=== PATIENT | female | born 1950 | race Caucasian/White ===

== ENCOUNTER 2016-08-30 13:21 | Outpatient (CLI) | payer MEDICARE | END 2016-08-30 13:22 | disposition home or self-care (01) | DX: E78.2 Mixed hyperlipidemia (principal); F32.9 Major depressive disorder, single episode, unspecified; E03.9 Hypothyroidism, unspecified; Z79.899 Other long term (current) drug therapy ==

== ENCOUNTER 2016-10-04 09:17 | Outpatient (CLI) | payer MEDICARE | END 2016-10-04 09:18 | disposition home or self-care (01) | DX: Z13.820 Encounter for screening for osteoporosis (principal); M85.89 Other specified disorders of bone density and structure, multiple sites; Z78.0 Asymptomatic menopausal state ==

== ENCOUNTER 2016-10-04 09:55 | Outpatient (CLI) | payer MEDICARE | END 2016-10-04 09:56 | disposition home or self-care (01) | DX: Z12.31 Encounter for screening mammogram for malignant neoplasm of breast (principal); Z98.82 Breast implant status ==

== ENCOUNTER 2016-11-18 10:51 | Outpatient (CLI) | payer MEDICARE | END 2016-11-18 10:52 | disposition home or self-care (01) | DX: E03.9 Hypothyroidism, unspecified (principal); Z79.899 Other long term (current) drug therapy ==

== ENCOUNTER 2016-11-26 10:41 | Outpatient (CLI) | payer MEDICARE | END 2016-11-26 10:42 | disposition home or self-care (01) | DX: S82.65XA Nondisplaced fracture of lateral malleolus of left fibula, initial encounter for closed fracture (principal) ==

== ENCOUNTER 2017-01-13 19:31 | Emergency (ER) | payer MEDICARE ==
[2017-01-13] MEDS ORDERED: BUFFERED LIDOCAINE 10 ML SYRINGE ONE (20:24)
== END 2017-01-13 21:03 | disposition home or self-care (01) ==
DX: L02.01 Cutaneous abscess of face (principal); L03.211 Cellulitis of face; I10 Essential (primary) hypertension

== ENCOUNTER 2017-01-15 07:46 | Outpatient (CLI) | payer MEDICARE | END 2017-01-15 07:47 | disposition critical access hospital (66) | LOC: EMS 07:46 | PROVIDERS: ATTEND Surgery | DX: R07.9 Chest pain, unspecified (principal) | CPT/HCPCS: A0425; A0429 ==

== ENCOUNTER 2017-01-15 08:02 | Emergency (ER) | payer MEDICARE ==
--- NOTE | 2017-01-15 08:05 | ED Physician Documentation ---
PD HPI CHEST PAIN - Stated complaint Stated Complaint: CP - History obtained from History obtained from: Patient - History of Present Illness Timing - onset: How many weeks ago (1) Timing - onset during: Light activity Timing - duration: Weeks (1) Timing - details: Gradual onset, Still present Quality: Aching, Sharp, Pain Location: Right chest (anterolaterally under right breast, hurts with breathing and moving.) Radiation: No: Neck, Back, Abdominal Improved by: Rest Worsened by: Inspiration, Movement, Palpation Associated symptoms: No: Shortness of air, Nausea, Vomiting, Feeling faint / dizzy, Palpitations, Cough Similar symptoms before: No diagnosis Recently seen: Emergency Dept (seen in ED with facial right cheek abscess that had I&D with packing and Rx Bactrim. The facial sore started similar timing to the chest pain. No rash at chest.) Review of Systems Constitutional: reports: Myalgias. denies: Fever, Chills Nose: denies: Rhinorrhea / runny nose, Congestion Throat: denies: Dental pain / toothache, Oral lesions / sores, Sore throat Cardiac: denies: Palpitations, Pedal edema, Calf pain Respiratory: denies: Dyspnea, Cough, Wheezing GI: denies: Nausea, Vomiting, Diarrhea Skin: reports: Lesions (right facial abscess with I&D 2 days ago, with little to no drainage now and less swelling.) Musculoskeletal: denies: Neck pain, Back pain, Extremity swelling Neurologic: denies: Focal weakness, Numbness, Near syncope PD PAST MEDICAL HISTORY - Past Medical History Cardiovascular: Hypertension Respiratory: None Neuro: None Endocrine/Autoimmune: None GI: None PSYCHIATRIC LPN: None : None HEENT: None Psych: None Musculoskeletal: Osteoarthritis, Other (recent ankle injury and was in walking boot for 6 weeks, just out of it a week ago. ) Derm: None - Past Surgical History Past Surgical History: Yes Ortho: Amputation - Present Medications Home Medications: Ambulatory Orders Medication Instructions Recorded Confirmed Hydrocodone/Acetaminophen [Vicodin 1 tab Q6H PRN 01/15/17 01/15/17 5-300 mg Tablet] Naproxen 375 mg PO BID #20 tablet 01/15/17 Oxycodone HCl/Acetaminophen 1 each PO Q6H PRN #20 tablet 01/15/17 [Percocet 5-325 mg Tablet] Sulfamethox/Trimeth 800/160 1 tab BID 01/15/17 01/15/17 [Bactrim Ds] Zolpidem Tartrate [Ambien] 10 mg PO QPM 01/15/17 01/15/17 - Allergies Allergies/Adverse Reactions: Allergies Allergy/AdvReac Type Severity Reaction Status Date / Time No Known Drug Allergies Allergy Verified 01/15/17 08:16 - Social History Does the pt smoke?: No Smoking Status: Never smoker Does the pt drink ETOH?: Yes Does the pt have substance abuse?: No - Immunizations Immunizations are current?: Yes - POLST Patient has POLST: No PD ED PE NORMAL - Vitals Vital signs reviewed: Yes - General General: Alert and oriented X 3, No acute distress, Well developed/nourished - HEENT HEENT: Atraumatic, Ears normal, Moist mucous membranes, Pharynx benign - Neck Neck: Supple, no meningeal sign, No adenopathy - Cardiac Cardiac: RRR, No murmur - Respiratory Respiratory: Clear bilaterally, Other (some chestwall tenderness under right breast anterolaterally. No crepitance. No rash nor sores. ) Results - Vitals Vitals: Vital Signs - 24 hr 01/15/17 01/15/17 01/15/17 08:09 10:22 12:36 Temperature 36.3 C L 36.5 C Heart Rate 78 68 80 Respiratory 20 12 18 Rate Blood Pressure 166/84 H 139/83 H 157/66 H O2 Saturation 100 97 100 Oxygen O2 Source Room air - Labs Labs: Laboratory Tests 01/15/17 01/15/17 01/15/17 08:29 09:43 09:43 WBC 7.4 RBC 4.00 L Hgb 12.5 Hct 36.5 L MCV 91.2 MCH 31.3 H MCHC 34.4 RDW 13.8 Plt Count 223 MPV 8.8 Neut # 5.2 Lymph # 1.3 L Walton # 0.6 Eos # 0.1 Baso # 0.0 Absolute Nucleated RBC 0.00 Nucleated RBCs 0.1 D-Dimer 262.2 H Sodium Potassium Chloride Carbon Dioxide Anion Gap BUN Creatinine Estimated GFR (MDRD) Glucose Calcium Total Bilirubin AST ALT Alkaline Phosphatase Troponin I B-Natriuretic Peptide 16 Total Protein Albumin Globulin Albumin/Globulin Ratio Lipase 01/15/17 01/15/17 09:43 09:43 WBC RBC Hgb Hct MCV MCH MCHC RDW Plt Count MPV Neut # Lymph # Walton # Eos # Baso # Absolute Nucleated RBC Nucleated RBCs D-Dimer Sodium 139 Potassium 5.4 H Chloride 104 Carbon Dioxide 25 Anion Gap 10.0 BUN 22 H Creatinine 1.1 H Estimated GFR (MDRD) 49 L Glucose 112 H Calcium 10.0 Total Bilirubin 0.6 AST 30 ALT 27 Alkaline Phosphatase 95 Troponin I < 0.04 B-Natriuretic Peptide Total Protein 8.1 Albumin 4.4 Globulin 3.7 Albumin/Globulin Ratio 1.2 Lipase 21 L - Rads (name of study) chest xray Radiology: Prelim report reviewed (subtle ground glass opacities right middle lobe could be early infectious process. ) PD MEDICAL DECISION MAKING - ED course Complexity details: reviewed results (CXR is okay. Labs do not suggest worse process. D-dimer is negative. WBC is okay. BNP and Troponin are nagative. CXR might suggest early RML infectious or inflammatory process so NSAIDs and continue the Bactrim (timing of the symptoms concurrent with facial abscess could lead to concern for staph pneumonia - to recheck if worsening).), re- evaluated patient (discussed with her and spouse to watch for evolving symptoms of cough, fever, skin rash, other symptoms to suggest blossoming process not evident as yet. ), considered differential (the cheek abscess is doing well and packing removed without problems. No drainage. The right chest pain presume is pleuritic or muscular. No indication for more significant process. ), d/w patient Departure - Departure Disposition: 01 Home, Self Care Clinical Impression: Right-sided chest pain, Abscess re-check Condition: Stable Instructions: ED Chest Pain Atypical Unkn Cause Follow-Up: Mike Chong MD [Primary Care Provider] - Prescriptions: Naproxen 375 mg PO BID #20 tablet Oxycodone HCl/Acetaminophen [Percocet 5-325 mg Tablet] 1 each PO Q6H PRN #20 tablet PRN Reason: Pain Comments: Drink adequate fluids. Take usual medications. Continue the Bactrim antibiotic. Add low dose naproxen 375 mg twice daily with food, and add Tylenol or Percocet as needed for pains. Presume the chest pain is musculoskeletal. Recheck with PMD in a couple of days, call for appt. Discharge Date/Time: 01/15/17 12:45
[2017-01-15] MEDS ORDERED: KETOROLAC 60 MG/2 ML VIAL IVP STA (08:28)
[2017-01-15] MEDS ORDERED: HYDROmorphone 1 MG/ML SYRINGE IVP STA ×2 (08:28→12:31)
[2017-01-15] MEDS ORDERED: ONDANSETRON 4 MG/2 ML VIAL IVP STA (08:29)
[2017-01-15] MEDS ORDERED: KETOROLAC 30 MG/ML VIAL ONE (08:56)
[2017-01-15] MEDS ORDERED: HYDROmorphone 1 MG/ML SYRINGE ONE ×2 (08:56→12:30)
[2017-01-15] MEDS ORDERED: ONDANSETRON 4 MG/2 ML VIAL ONE (08:57)
--- NOTE | 2017-01-15 09:13 | XRAY Preliminary Report ---
Exam: XR Chest 2 View PA/LAT IMPRESSION: Subtle groundglass opacities with rounded densities in bilateral lobe are nonspecific but can be seen in the setting of inflammatory or early infectious process. [facility] SITE ID: [id number]
--- NOTE | 2017-01-15 09:16 | XRAY Report ---
EXAM: CHEST RADIOGRAPHY EXAM DATE: 01/15/2017 08:44 AM. CLINICAL HISTORY: Right chest pain for 4 days. COMPARISON: None. TECHNIQUE: 2 views. FINDINGS: Lungs/Pleura: Subtle groundglass opacities with nodular densities in the right middle lobe with no fo roque consolidation or pleural effusion. Mediastinum: Heart and mediastinal contours are unremarkable. Other: None. IMPRESSION: Subtle groundglass opacities with rounded densities in bilateral lobe are nonspecific but can be seen in the setting of inflammatory or early infectious process. [facility] Referring Provider Line: [phone] SITE ID: [id number]
[2017-01-15 09:54] LABS: BASOPHILS % (AUTO) 0.6 %; EOSINOPHILS # (AUTO) 0.1 10^3/uL (0.0-0.7); HCT - HEMATOCRIT 36.5 % (37.0-47.0); HGB - HEMOGLOBIN 12.5 g/dL (12.0-16.0); LYMPHOCYTES # (AUTO) 1.3 10^3/uL (1.5-3.5); LYMPHOCYTES % (AUTO) 18.2 %; MEAN CORPUSCULAR HEMOGLOBIN 31.3 pg (27.0-31.0); MEAN CORPUSCULAR HGB CONC 34.4 g/dL (32.0-36.0); MEAN CORPUSCULAR VOLUME 91.2 fL (81.0-99.0); MEAN PLATELET VOLUME 8.8 fL (7.9-10.8); MONOCYTES # (AUTO) 0.6 10^3/uL (0.0-1.0); MONOCYTES % (AUTO) 8.1 %; NEUTROPHILS # (AUTO) 5.2 10^3/uL (1.5-6.6); NEUTROPHILS % (AUTO) 71.1 %; NUCLEATED RED BLOOD CELLS AUTO 0.1 /100WBC; RED CELL DISTRIBUTION WIDTH 13.8 % (12.0-15.0); UNCORRECTED WHITE BLOOD COUNT 7.4 x10^3/uL; WHITE BLOOD COUNT 7.4 x10^3/uL (4.8-10.8)
[2017-01-15 10:09] LABS: ALBUMIN/GLOBULIN RATIO 1.2 (1.0-2.2); BILIRUBIN,TOTAL 0.6 mg/dL (0.2-1.0); CREATININE 1.1 mg/dL (0.4-1.0); POTASSIUM 5.4 mmol/L (3.5-5.0); TOTAL PROTEIN 8.1 g/dL (6.7-8.2)
[2017-01-15 12:36] VITALS: BP 157/66
== END 2017-01-15 12:45 | disposition home or self-care (01) ==
LOC: EDUNIT# → ED 08:02
DX: R07.9 Chest pain, unspecified (principal); L02.01 Cutaneous abscess of face; I10 Essential (primary) hypertension; M19.90 Unspecified osteoarthritis, unspecified site
CPT/HCPCS: 36415; 71020; 80053; 83690; 83880; 84484; 85025; 85379; 96374; 96375; 96376; 99283; 99284; J1170

== ENCOUNTER 2017-01-19 14:52 | Emergency (ER) | payer MEDICARE ==
[2017-01-19] MEDS ORDERED: KETOROLAC 60 MG/2 ML VIAL IM STA (16:14)
[2017-01-19] MEDS ORDERED: DEXAMETHASONE 10 MG/ML VIAL PO STA (16:14)
[2017-01-19] MEDS ORDERED: DEXAMETHASONE 10 MG/ML VIAL ONE (16:19)
[2017-01-19] MEDS ORDERED: KETOROLAC 60 MG/2 ML VIAL ONE (16:20)
--- NOTE | 2017-01-19 16:47 | XRAY Preliminary Report ---
Exam: XR Chest 2 View PA/LAT IMPRESSION: 1. Reticular nodular opacities in the right lower lobe. Correlate clinically for infectious or inflam matory processes. 2. No effusions or pneumothorax. [facility] SITE ID: [id number]
--- NOTE | 2017-01-19 16:59 | XRAY Report ---
EXAM: CHEST RADIOGRAPHY EXAM DATE: 01/19/2017 04:38 PM. CLINICAL HISTORY: Right-sided chest pain . COMPARISON: 01/15/2017. TECHNIQUE: 2 views. FINDINGS: Lungs/Pleura: Persistent reticulonodular opacities in the right lower lobe. No effusions or pneumotho rax noted. Mediastinum: Heart and mediastinal contours are unremarkable. Other: None. IMPRESSION: 1. Reticulonodular opacities in the right lower lobe. Correlate clinically for infectious or inflamma tory process. 2. No effusions or pneumothorax. [facility] Referring Provider Line: [phone] SITE ID: [id number]
[2017-01-19] MEDS ORDERED: cefTRIAXone 1 GM VIAL IM STA (17:05)
--- NOTE | 2017-01-19 17:06 | ED Physician Documentation ---
History of Present Illness - Stated complaint Stated Complaint: PX RIGHT SIDE - Chief complaint Chief Complaint: General - History obtained from History obtained from: Patient - History of Present Illness Timing: How many weeks ago (1) - Additonal information Additional information: 66 y/o female with a carbuncle on her face that is improving has pain in the right chest that started at the same time as the infection on the face has improvement in the face and worsening of the pain in the right chest. The pain in the right chest is so bad that she has not been able to sleep for the past 4 days. She has pain with any movement of the right arm and with palpation of the chest wall. She is certain that this is a result of exercises she was doing to prevent a shoulder surgery. She does not feel like she has a cough or breathing difficulty. She usually takes some tramadol for back pain and she is used to taking this and this did not work. asprin did not work and she tried both vicoden and oxycodone and these did not work. Review of Systems Constitutional: reports: Fatigue. denies: Fever, Chills, Myalgias Eyes: denies: Decreased vision Ears: denies: Ear pain Nose: denies: Rhinorrhea / runny nose, Congestion Throat: denies: Sore throat Cardiac: reports: Chest pain / pressure. denies: Palpitations, Pedal edema, Calf pain Respiratory: denies: Dyspnea, Cough, Wheezing GI: denies: Abdominal Pain, Nausea, Vomiting : denies: Dysuria, Frequency Skin: reports: Lesions (improved on the face.). denies: Rash Musculoskeletal: reports: Back pain. denies: Neck pain, Extremity pain, Joint pain Neurologic: denies: Generalized weakness, Focal weakness, Numbness PD PAST MEDICAL HISTORY - Past Medical History Cardiovascular: Hypertension Respiratory: None Neuro: None Endocrine/Autoimmune: None GI: None MICROBIOLOGY ANALYST: None : None HEENT: None Psych: None Musculoskeletal: Osteoarthritis, Other Derm: None - Past Surgical History Past Surgical History: Yes Ortho: Amputation - Present Medications Home Medications: Ambulatory Orders Medication Instructions Recorded Confirmed Oxycodone HCl/Acetaminophen 1 each PO Q6H PRN #20 tablet 01/15/17 01/19/17 [Percocet 5-325 mg Tablet] Zolpidem Tartrate [Ambien] 10 mg PO QPM 01/15/17 01/19/17 Azithromycin [Zithromax] 250 mg PO DAILY #6 tablet 01/19/17 Dexamethasone [Decadron] 4 mg PO DAILY #5 tablet 01/19/17 - Allergies Allergies/Adverse Reactions: Allergies Allergy/AdvReac Type Severity Reaction Status Date / Time No Known Drug Allergies Allergy Verified 01/19/17 14:58 - Social History Does the pt smoke?: No Smoking Status: Never smoker Does the pt drink ETOH?: Yes Does the pt have substance abuse?: No - Immunizations Immunizations are current?: Yes - POLST Patient has POLST: No PD ED PE NORMAL - Vitals Vital signs reviewed: Yes - General General: Alert and oriented X 3, Well developed/nourished, Other (appears to be in pain with any movement of the right arm or the chest. She is clutching the chest below the right breast ) - HEENT HEENT: Atraumatic, PERRL, EOMI - Neck Neck: Supple, no meningeal sign - Cardiac Cardiac: RRR, No murmur - Respiratory Respiratory: No respiratory distress, Clear bilaterally, Other (There specific chest wall tenderness to the right chest wall under the right breast and laterally ) - Abdomen Abdomen: Soft, Non tender - Back Back: No CVA TTP, No spinal TTP - Derm Derm: Normal color, Warm and dry, No rash - Extremities Extremities: No deformity, No edema - Neuro Neuro: Alert and oriented X 3, No motor deficit, No sensory deficit, Normal speech - Psych Psych: Normal mood, Normal affect Results - Vitals Vitals: Vital Signs - 24 hr 01/19/17 01/19/17 01/19/17 14:54 16:43 17:41 Temperature 36.2 C L 37.1 C 36.8 C Heart Rate 105 H 76 78 Respiratory 28 H 18 16 Rate Blood Pressure 161/85 H 131/70 H 118/80 O2 Saturation 96 100 100 Oxygen O2 Source Room air - Rads (name of study) 2 view chest Radiology: Prelim report reviewed (Impression: 1. Reticular nodular opacities in the right lower lobe. Correlate clinically for infectious or inflammatory process. 2. No effusions or pneumothorax.), EMP read indepedently, See rad report PD MEDICAL DECISION MAKING - ED course Complexity details: reviewed results, re-evaluated patient, considered differential, d/w patient ED course: 66 y/o female with a resolving facial abscess has right sided chest wall pain and an underlying inflammatory process that appears more of an atypical infiltrate. Her pain appears to be chest wall pain and it responds to decadron and toradal and the patient is able to sleep in the ED. She is certain this pain is related to her chest wall and her shoulder exercises. She has not been successful in treating the pain with pain medications. I am concerned that the atypical infiltrate is real and we have provided her with a script for zithromax and for decadron. She is advised to use the tramadol she has for pain control. Departure - Departure Disposition: Home, Self Care Clinical Impression: Chest wall pain, Atypical pneumonia Condition: Stable Instructions: ED Strain Chest Wall, ED Pneumonia Adult Follow-Up: Mike Chong MD [Provider Admit Priv/Credential] - Prescriptions: Dexamethasone [Decadron] 4 mg PO DAILY #5 tablet Azithromycin [Zithromax] 250 mg PO DAILY #6 tablet
[2017-01-19] MEDS ORDERED: cefTRIAXone 1 GM VIAL ONE (17:53)
[2017-01-19] MEDS ORDERED: LIDOCAINE 1% 2 ML VIAL ONE (17:53)
[2017-01-19 19:29] VITALS: BP 150/85
== END 2017-01-19 19:25 | disposition home or self-care (01) ==
LOC: ED 14:52
DX: J18.9 Pneumonia, unspecified organism (principal); R07.89 Other chest pain; L02.03 Carbuncle of face; I10 Essential (primary) hypertension
CPT/HCPCS: 71020; 96372; 99283; 99284

== ENCOUNTER 2017-01-24 10:20 | Outpatient (CLI) | payer MEDICARE ==
--- NOTE | 2017-01-24 13:25 | XRAY Report ---
RIGHT RIBS WITH FRONTAL CHEST: 01/24/2017 CLINICAL INDICATION: Pleurodynia. COMPARISON: 01/19/2017. FINDINGS: Frontal view of the chest and oblique views of the right ribs were obtained. A marker was placed at the site of maximal tenderness. The cardiac silhouette is within normal limits. The lungs are now clear. No effusion or pneumothorax is evident. No displaced rib fracture is appreciated. IMPRESSION: NO EVIDENCE OF A DISPLACED RIB FRACTURE. RESOLUTION OF PREVIOUSLY NOTED RIGHT BASILAR AI R SPACE DISEASE. JOB #: [id number] EXT JOB #:[id number]
== END 2017-01-24 10:21 | disposition home or self-care (01) ==
LOC: DI 10:20
PROVIDERS: ATTEND Internal Medicine
DX: R07.81 Pleurodynia (principal)

== ENCOUNTER 2017-04-30 10:16 | Day surgery (SDC) | payer MEDICARE ==
[2017-04-30] MEDS ORDERED: LACTATED RINGERS 1,000 ML IV ONE (10:30)
[2017-04-30] MEDS ORDERED: fentaNYL 100 MCG/2 ML VIAL IVP ONE (12:20)
[2017-04-30] MEDS ORDERED: MIDAZOLAM 2 MG/2 ML VIAL IVP ONE (12:20)
--- NOTE | 2017-04-30 13:16 | PROCEDURE REPORT ---
DATE OF PROCEDURE: 04/30/2017 00:00:00 PROCEDURE: Colonoscopy. ENDOSCOPIST: Sharla Orellana MD PRIMARY CARE: Mike Chong MD INDICATION: History of colon polyps. PREMEDICATIONS: Fentanyl 200 mcg, Versed 13 mg IV titration. DESCRIPTION OF PROCEDURE: After informed consent was obtained, the patient was placed in the left lat eral decubitus position. The video colonoscope was introduced in the rectum and slowly advanced to th e cecum. On slow withdrawal, mucosa was carefully examined. The scope was removed. The patient tolera daisy the procedure well. BLOOD LOSS: None. COMPLICATIONS: None. FINDINGS 1. A 1.2 cm semi-sessile polyp at the rim of the cecum, hot snared and removed completely. 2. A 5 mm hepatic flexure polyp, jumbo biopsied and removed completely. 3. A 4 mm transverse colon polyp, jumbo biopsied and removed completely. 4. Sigmoid diverticulosis. The patient will be called with biopsy results but will need followup colonoscopy, most likely in 3 y ears. JOB #: [id number] EXT JOB #:[id number]
[2017-04-30 13:25] VITALS: BP 118/68
== END 2017-04-30 10:17 | disposition home or self-care (01) ==
LOC: SDS 10:16
PROVIDERS: ATTEND Internal Medicine Gastroenterology
PROC: 0DBL8ZX Excision of Transverse Colon, Via Natural or Artificial Opening Endoscopic, Diagnostic (ICD-10-PCS; 2017-04-30)
PROC: 0DBH8ZX Excision of Cecum, Via Natural or Artificial Opening Endoscopic, Diagnostic (ICD-10-PCS; principal; 2017-04-30 12:00)
DX: D12.0 Benign neoplasm of cecum (principal); D12.3 Benign neoplasm of transverse colon; K57.30 Diverticulosis of large intestine without perforation or abscess without bleeding; I10 Essential (primary) hypertension; Z87.891 Personal history of nicotine dependence
CPT/HCPCS: 45380; 45385; 88305; J7120

== ENCOUNTER 2017-05-19 11:20 | Outpatient (CLI) | payer MEDICARE | END 2017-05-19 11:21 | disposition home or self-care (01) | LOC: LAB.R 11:20 | PROVIDERS: ATTEND Physician Assistant Medical | DX: E03.9 Hypothyroidism, unspecified (principal); Z79.899 Other long term (current) drug therapy | CPT/HCPCS: 84443 ==

== ENCOUNTER 2017-05-29 10:37 | Outpatient (CLI) | payer MEDICARE ==
--- NOTE | 2017-05-29 12:46 | XRAY Report ---
THREE-VIEW LUMBAR SPINE: 05/29/2017 CLINICAL INDICATION: Fall, pain. FINDINGS: AP, lateral, coned-down views of the lumbar spine demonstrate straightening of the normal lumbar lordosis. Moderate degenerative disc and facet disease is present, with disk space narrowing worst at L4-5. There is no evidence of compression fracture or subluxation. IMPRESSION: MODERATE DEGENERATIVE CHANGES. NO EVIDENCE OF ACUTE FRACTURE. JOB #: [id number] EXT JOB #:[id number]
--- NOTE | 2017-05-29 12:48 | XRAY Report ---
THREE-VIEW PELVIS: 05/29/2017 CLINICAL INDICATION: Pain. FINDINGS: AP, inlet, outlet views of the pelvis demonstrate no evidence of fracture. Mild bilateral hip osteoarthritis is noted. No radiopaque foreign body is appreciated in the soft tissues. IMPRESSION: MILD OSTEOARTHRITIS. NO EVIDENCE OF PELVIC FRACTURE. JOB #: [id number] EXT JOB #:[id number]
== END 2017-05-29 10:38 | disposition home or self-care (01) ==
LOC: DI 10:37
PROVIDERS: ATTEND Physician Assistant Medical
DX: M51.36 Other intervertebral disc degeneration, lumbar region (principal); M47.896 Other spondylosis, lumbar region; M16.0 Bilateral primary osteoarthritis of hip
CPT/HCPCS: 72100; 72190

== ENCOUNTER 2017-09-26 08:26 | Outpatient (CLI) | payer MEDICARE ==
[2017-09-26 15:21] LABS: BASOPHILS % (AUTO) 0.4 %; EOSINOPHILS # (AUTO) 0.2 10^3/uL (0.0-0.7); EOSINOPHILS % (AUTO) 2.2 %; HGB - HEMOGLOBIN 13.3 g/dL (12.0-16.0); LYMPHOCYTES # (AUTO) 1.9 10^3/uL (1.5-3.5); LYMPHOCYTES % (AUTO) 28.3 %; MEAN CORPUSCULAR HEMOGLOBIN 31.3 pg (27.0-31.0); MEAN CORPUSCULAR HGB CONC 32.6 g/dL (32.0-36.0); MEAN PLATELET VOLUME 9.2 fL (7.9-10.8); MONOCYTES # (AUTO) 0.5 10^3/uL (0.0-1.0); MONOCYTES % (AUTO) 6.9 %; NEUTROPHILS # (AUTO) 4.2 10^3/uL (1.5-6.6); NEUTROPHILS % (AUTO) 62.2 %; PLT - PLATELET COUNT 274 10^3/uL (130-450); RED BLOOD COUNT 4.24 10^6/uL (4.20-5.40); RED CELL DISTRIBUTION WIDTH 13.4 % (12.0-15.0); WHITE BLOOD COUNT 6.7 x10^3/uL (4.8-10.8)
[2017-09-26 15:24] LABS: ALBUMIN 4.3 g/dL (3.2-5.5); ALBUMIN/GLOBULIN RATIO 1.2 (1.0-2.2); ALKALINE PHOSPHATASE 88 IU/L (42-121); ALT ALANINE AMINOTRANSFERASE 21 IU/L (10-60); AST ASPARTATE AMINOTRANSFERASE 21 IU/L (10-42); BILIRUBIN,TOTAL 0.5 mg/dL (0.2-1.0); BUN - BLOOD UREA NITROGEN 14 mg/dL (6-20); CALCIUM 9.5 mg/dL (8.5-10.3); CARBON DIOXIDE - CO2 27 mmol/L (21-32); CHLORIDE 99 mmol/L (101-111); CHOL/HDL RATIO 3.2 (<4.4); CHOLESTEROL 191 mg/dL; CREATININE 0.9 mg/dL (0.4-1.0); GFR - MDRD 62 (>89); GLUCOSE 89 mg/dL (70-100); HDL CHOLESTEROL 59 mg/dL; LDL CHOLESTEROL,CALCULATED 98 mg/dL; LDL/HDL RATIO 1.7 (<4.4); SODIUM 136 mmol/L (135-145); VLDL CHOLESTEROL 34 mg/dL
== END 2017-09-26 08:27 | disposition home or self-care (01) ==
LOC: LAB.R 08:26
PROVIDERS: ATTEND Physician Assistant Medical
DX: M81.0 Age-related osteoporosis without current pathological fracture (principal); I10 Essential (primary) hypertension; E03.9 Hypothyroidism, unspecified; E78.2 Mixed hyperlipidemia; Z79.899 Other long term (current) drug therapy
CPT/HCPCS: 80053; 80061; 82306; 83721; 84443; 85025

== ENCOUNTER 2017-10-12 08:03 | Emergency (ER) | payer MEDICARE ==
[2017-10-12 08:11] VITALS: BP 170/88
[2017-10-12] MEDS ORDERED: NEOMYCIN/POLYMYX/DEXAMETH OPHTH DROPS 5 ML RIGHTEYE STA (08:22)
--- NOTE | 2017-10-12 08:27 | ED Physician Documentation ---
PD HPI OPHTHO - Stated complaint Stated Complaint: R EYE PX - Chief complaint Chief Complaint: Heent - History obtained from History obtained from: Patient - History of Present Illness Timing - onset: How many days ago (2) Timing - duration: Days (2) Timing - details: Abrupt onset, Still present Location: Right Quality / character: No: Itching, Burning, Aching, Throbbing, Sharp Associated symptoms: Redness, Swelling, Tearing. No: Discharge, Matting, FB sensation, Photophobia, Double vision, Decreased vision, Loss of vision, Headache Contributing factors: Other (The patient was playing with her cat the evening before she noticed the redness and the cat swiped at her face striking her in the forehead above the right eye. She did not get scratched.) Similar symptoms before: Has not had sx before Recently seen: Not recently seen - Additional information Additional information: 67-year-old female was playing with her cat and the cat pawed at her forehead above the right eye. The patient awoke the next morning with redness to the right eye and she does not have a foreign body sensation or pain. When she awoke this morning with worsening swelling and redness of her eye she is come to the emergency department with concerns that there may be a problem related to the fact that the cat was involved. Review of Systems Constitutional: denies: Fever Eyes: reports: Irritation. denies: Loss of vision, Decreased vision, Photophobia, Discharge Ears: denies: Loss of hearing Nose: denies: Rhinorrhea / runny nose, Congestion Throat: denies: Sore throat Respiratory: denies: Dyspnea, Cough GI: denies: Vomiting Skin: denies: Rash Musculoskeletal: denies: Neck pain, Back pain, Extremity pain Neurologic: denies: Generalized weakness, Focal weakness, Numbness PD PAST MEDICAL HISTORY - Past Medical History Past Medical History: Yes Cardiovascular: Hypertension, High cholesterol Respiratory: None Neuro: None Endocrine/Autoimmune: HyPOthyroidism GI: None IT SOLUTIONS ARCHITECT: None : None HEENT: None Psych: None Musculoskeletal: Osteoarthritis, Chronic back pain, Other Derm: None - Past Surgical History Past Surgical History: Yes Ortho: Amputation Derm: Skin cancer surgery - Present Medications Home Medications: Ambulatory Orders Medication Instructions Recorded Confirmed Zolpidem Tartrate [Ambien] 10 mg PO QPM 01/15/17 04/30/17 Aspirin [Aspirin EC] 81 mg PO DAILY 04/30/17 04/30/17 Cholecalciferol (Vitamin D3) 400 unit PO DAILY 04/30/17 04/30/17 [Vitamin D3] Hydrocodone/Acetaminophen 1 each PO DAILY PRN 04/30/17 04/30/17 [Hydrocodon-Acetaminophen 5-325] Levothyroxine [Synthroid] 75 mcg PO QDAC 04/30/17 04/30/17 Lisinopril 20 mg PO DAILY 04/30/17 04/30/17 [place]-3 Fatty Acids/Fish Oil [Fish 1 each PO DAILY 04/30/17 04/30/17 Oil 1,000 mg Softgel] Venlafaxine ER [Effexor ER] 75 mg PO DAILY 04/30/17 04/30/17 traMADol [Ultram] 50 mg PO ONCE 04/30/17 04/30/17 Atorvastatin Calcium 20 mg PO QPM 10/12/17 10/12/17 Neomycin/Poly/Dex Ophth Drops 1 drops RIGHTEYE QID #1 bottle 10/12/17 [Maxitrol Ophth Drops] - Allergies Allergies/Adverse Reactions: Allergies Allergy/AdvReac Type Severity Reaction Status Date / Time No Known Drug Allergies Allergy Verified 10/12/17 08:11 - Social History Does the pt smoke?: No Smoking Status: Never smoker Does the pt drink ETOH?: Yes Does the pt have substance abuse?: No - Immunizations Immunizations are current?: Yes - POLST Patient has POLST: No PD ED PE NORMAL - Vitals Vital signs reviewed: Yes (Hypertensive) - General General: Alert and oriented X 3, No acute distress, Well developed/nourished - HEENT HEENT: Atraumatic, PERRL, EOMI, Other (There is a subconjunctival hemorrhage to the right sclera that does not appear to have a specific entry point. There is some scleral edema that is mild and there is no drainage. There is no involvement of the cornea.) - Neck Neck: Supple, no meningeal sign - Respiratory Respiratory: No respiratory distress - Derm Derm: Normal color, Warm and dry, No rash - Extremities Extremities: No deformity, No edema - Neuro Neuro: No motor deficit, No sensory deficit Eye Opening: Spontaneous Motor: Obeys Commands Verbal: Oriented GCS Score: 15 - Psych Psych: Normal mood, Normal affect Results - Vitals Vitals: Vital Signs - 24 hr 10/12/17 08:07 Temperature 36.2 C L Heart Rate 84 Respiratory 16 Rate Blood Pressure 170/88 H O2 Saturation 94 Oxygen O2 Source Room air PD MEDICAL DECISION MAKING - ED course Complexity details: considered differential, d/w patient ED course: 67-year-old female with a subconjunctival hemorrhage has more swelling of the sclera than expected for a simple hemorrhage and a cat was involved in the onset of symptoms. She is given Maxitrol eyedrop in the emergency department and we will have close follow-up. Departure - Departure Disposition: Home, Self Care Clinical Impression: Subconjunctival hemorrhage of right eye Condition: Stable Instructions: ED Eye Injury Subconj Hemorrhage Follow-Up: Mary Cabrera PA-C [Primary Care Provider] - Prescriptions: Neomycin/Poly/Dex Ophth Drops [Maxitrol Ophth Drops] 1 drops RIGHTEYE QID #1 bottle Comments: Today it appears to have a subconjunctival hemorrhage. There is concern for superficial infection and the expectation is that this clears up quickly and if it does not or you have progression of your symptoms it is imperative to return to the emergency department or follow up with your doctor. Discharge Date/Time: 10/12/17 08:37
== END 2017-10-12 08:37 | disposition home or self-care (01) ==
LOC: ED 08:03
DX: H11.31 Conjunctival hemorrhage, right eye (principal); I10 Essential (primary) hypertension; E78.00 Pure hypercholesterolemia, unspecified; E03.9 Hypothyroidism, unspecified; M19.90 Unspecified osteoarthritis, unspecified site; Z85.828 Personal history of other malignant neoplasm of skin; Z79.82 Long term (current) use of aspirin
CPT/HCPCS: 99283; J3490

== ENCOUNTER 2018-07-01 13:19 | Outpatient (CLI) | payer MEDICARE | END 2018-07-01 13:20 | disposition home or self-care (01) | LOC: LAB.R 13:19 | PROVIDERS: ATTEND Physician Assistant Medical | DX: R30.0 Dysuria (principal) | CPT/HCPCS: 87086 ==

== ENCOUNTER 2018-07-12 08:30 | Emergency (ER) | payer MEDICARE ==
[2018-07-12] MEDS ORDERED: ERYTHROMYCIN OPHTH OINT 1 GM TUBE RIGHTEYE STA (08:57)
--- NOTE | 2018-07-12 08:59 | ED Physician Documentation ---
PD HPI OPHTHO - Stated complaint Stated Complaint: R EYE INJURY - Chief complaint Chief Complaint: Heent - History obtained from History obtained from: Patient - History of Present Illness Timing - onset: Yesterday (She was poked in the right eye by a tree branch yesterday while gardening at home. She has persistent pain but no visual issues.) Review of Systems Constitutional: reports: Reviewed and negative Eyes: reports: Discharge, Irritation. 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 : None HEENT: None Psych: None Musculoskeletal: Osteoarthritis, Chronic back pain, Other Derm: None - Past Surgical History Past Surgical History: Yes Ortho: Amputation Derm: Skin cancer surgery - Present Medications Home Medications: Ambulatory Orders Medication Instructions Recorded Confirmed Zolpidem Tartrate [Ambien] 10 mg PO QPM 01/15/17 04/30/17 Aspirin [Aspirin EC] 81 mg PO DAILY 04/30/17 04/30/17 Cholecalciferol (Vitamin D3) 400 unit PO DAILY 04/30/17 04/30/17 [Vitamin D3] Hydrocodone/Acetaminophen 1 each PO DAILY PRN 04/30/17 04/30/17 [Hydrocodon-Acetaminophen 5-325] Levothyroxine [Synthroid] 75 mcg PO QDAC 04/30/17 04/30/17 Lisinopril 20 mg PO DAILY 04/30/17 04/30/17 [place]-3 Fatty Acids/Fish Oil [Fish 1 each PO DAILY 04/30/17 04/30/17 Oil 1,000 mg Softgel] Venlafaxine ER [Effexor ER] 75 mg PO DAILY 04/30/17 04/30/17 traMADol [Ultram] 50 mg PO ONCE 04/30/17 04/30/17 Atorvastatin Calcium 20 mg PO QPM 10/12/17 10/12/17 Neomycin/Poly/Dex Ophth Drops 1 drops RIGHTEYE QID #1 bottle 10/12/17 [Maxitrol Ophth Drops] Erythromycin Base [Erythromycin 1 applic OP 5XD 7 Days #1 oint...g. 07/12/18 Ophthalmic Ointment] - Allergies Allergies/Adverse Reactions: Allergies Allergy/AdvReac Type Severity Reaction Status Date / Time No Known Drug Allergies Allergy Verified 07/12/18 08:41 - Social History Does the pt smoke?: No Smoking Status: Never smoker Does the pt drink ETOH?: Yes Does the pt have substance abuse?: No - Immunizations Immunizations are current?: Yes - POLST Patient has POLST: No PD ED PE NORMAL - Vitals Vital signs reviewed: Yes - General General: Alert and oriented X 3, No acute distress - HEENT HEENT: PERRL, EOMI, Other (On fluorescein evaluation there is a small superolateral corneal abrasion in the right eye negative Juan sign.) - Neck Neck: Supple, no meningeal sign, No bony TTP - Neuro Neuro: Alert and oriented X 3, Normal speech Results - Vitals Vitals: Vital Signs - 24 hr 07/12/18 08:37 Temperature 36.5 C Heart Rate 84 Respiratory 18 Rate Blood Pressure 143/73 H O2 Saturation 99 Oxygen O2 Source Room air Departure - Departure Disposition: 01 Home, Self Care Clinical Impression: Corneal abrasion Qualifiers: Encounter type: initial encounter Laterality: right Qualified Code(s): S05.01XA - Injury of conjunctiva and corneal abrasion without foreign body, right eye, initial encounter Condition: Good Record reviewed to determine appropriate education?: Yes Instructions: ED Eye Injury Corneal Abrasion Follow-Up: Greg Ibrahim MD [Provider Admit Priv/Credential] - Within 3 Days Prescriptions: Erythromycin Base [Erythromycin Ophthalmic Ointment] 1 applic OP 5XD 7 Days #1 oint...g. Comments: Your blood pressure was elevated today on check into the emergency department. This does not mean that you have hypertension, it is a common phenomenon to come to the emergency department and have elevated blood pressure. I recommend that you see your primary care physician within the week to have it rechecked when you are feeling better.
[2018-07-12 09:12] VITALS: BP 138/88
== END 2018-07-12 09:11 | disposition home or self-care (01) ==
LOC: ED 08:30
DX: S05.01XA Injury of conjunctiva and corneal abrasion without foreign body, right eye, initial encounter (principal); W22.8XXA Striking against or struck by other objects, initial encounter; Y93.H2 Activity, gardening and landscaping; Y92.007 Garden or yard of unspecified non-institutional (private) residence as the place of occurrence of the external cause; I10 Essential (primary) hypertension; Z79.82 Long term (current) use of aspirin
CPT/HCPCS: 99283; J3490

== ENCOUNTER 2018-08-10 11:55 | Outpatient (CLI) | payer MEDICARE | END 2018-08-10 11:56 | disposition EMS.NT | LOC: EMS 11:55 | PROVIDERS: ATTEND Surgery | DX: M25.512 Pain in left shoulder (principal); V49.40XA Driver injured in collision with unspecified motor vehicles in traffic accident, initial encounter; Y92.413 State road as the place of occurrence of the external cause ==

== ENCOUNTER 2018-10-12 08:00 | Outpatient (CLI) | payer MEDICARE ==
[2018-10-12 11:19] LABS: BASOPHILS % (AUTO) 0.4 %; EOSINOPHILS # (AUTO) 0.2 10^3/uL (0.0-0.7); EOSINOPHILS % (AUTO) 2.4 %; HGB - HEMOGLOBIN 13.4 g/dL (12.0-16.0); LYMPHOCYTES # (AUTO) 2.3 10^3/uL (1.5-3.5); LYMPHOCYTES % (AUTO) 33.9 %; MEAN CORPUSCULAR VOLUME 94.2 fL (81.0-99.0); MEAN PLATELET VOLUME 9.2 fL (7.9-10.8); MONOCYTES # (AUTO) 0.5 10^3/uL (0.0-1.0); MONOCYTES % (AUTO) 7.4 %; NEUTROPHILS # (AUTO) 3.8 10^3/uL (1.5-6.6); NEUTROPHILS % (AUTO) 55.9 %; PLT - PLATELET COUNT 289 10^3/uL (130-450); RED BLOOD COUNT 4.19 10^6/uL (4.20-5.40); RED CELL DISTRIBUTION WIDTH 13.1 % (12.0-15.0); WHITE BLOOD COUNT 6.7 x10^3/uL (4.8-10.8)
[2018-10-12 11:39] LABS: ALBUMIN 4.5 g/dL (3.2-5.5); ALBUMIN/GLOBULIN RATIO 1.3 (1.0-2.2); ALKALINE PHOSPHATASE 77 IU/L (42-121); ALT ALANINE AMINOTRANSFERASE 23 IU/L (10-60); AST ASPARTATE AMINOTRANSFERASE 23 IU/L (10-42); BILIRUBIN,TOTAL 0.7 mg/dL (0.2-1.0); BUN - BLOOD UREA NITROGEN 23 mg/dL (6-20); CALCIUM 9.8 mg/dL (8.5-10.3); CARBON DIOXIDE - CO2 28 mmol/L (21-32); CHLORIDE 96 mmol/L (101-111); CHOL/HDL RATIO 3.6 (<4.4); CHOLESTEROL 203 mg/dL; CREATININE 0.9 mg/dL (0.4-1.0); GFR - MDRD 62 (>89); GLUCOSE 125 mg/dL (70-100); HDL CHOLESTEROL 56 mg/dL; LDL CHOLESTEROL,CALCULATED 100 mg/dL; LDL/HDL RATIO 1.8 (<4.4); SODIUM 134 mmol/L (135-145); TOTAL PROTEIN 8.1 g/dL (6.7-8.2); VLDL CHOLESTEROL 47 mg/dL
== END 2018-10-12 23:59 | disposition home or self-care (01) ==
LOC: LAB.R 08:00
PROVIDERS: ATTEND Physician Assistant Medical
DX: M81.0 Age-related osteoporosis without current pathological fracture (principal); E78.2 Mixed hyperlipidemia; I10 Essential (primary) hypertension; E03.9 Hypothyroidism, unspecified; Z79.899 Other long term (current) drug therapy
CPT/HCPCS: 80053; 80061; 82306; 83721; 84443; 85025

== ENCOUNTER 2018-12-09 07:54 | Outpatient (CLI) | payer MEDICARE ==
[2018-12-09 08:43] LABS: ALBUMIN 4.8 g/dL (3.2-5.5); ALBUMIN/GLOBULIN RATIO 1.4 (1.0-2.2); ALKALINE PHOSPHATASE 77 IU/L (42-121); ALT ALANINE AMINOTRANSFERASE 33 IU/L (10-60); AST ASPARTATE AMINOTRANSFERASE 29 IU/L (10-42); BILIRUBIN,TOTAL 0.7 mg/dL (0.2-1.0); BUN - BLOOD UREA NITROGEN 23 mg/dL (6-20); CALCIUM 9.8 mg/dL (8.5-10.3); CARBON DIOXIDE - CO2 27 mmol/L (21-32); CHLORIDE 98 mmol/L (101-111); CHOL/HDL RATIO 4.1 (<4.4); CHOLESTEROL 212 mg/dL; GFR - MDRD 55 (>89); GLUCOSE 125 mg/dL (70-100); HDL CHOLESTEROL 52 mg/dL; LDL CHOLESTEROL,CALCULATED 123 mg/dL; LDL/HDL RATIO 2.4 (<4.4); SODIUM 135 mmol/L (135-145); TOTAL PROTEIN 8.3 g/dL (6.7-8.2); VLDL CHOLESTEROL 37 mg/dL
[2018-12-09 09:09] LABS: HB2 TOTAL 15.2 g/dL; HEMOGLOBIN A1C 0.59 g/dL; HEMOGLOBIN A1C % 5.7 % (4.6-6.2)
== END 2018-12-09 07:55 | disposition home or self-care (01) ==
LOC: LAB 07:54
PROVIDERS: ATTEND Internal Medicine
DX: E78.5 Hyperlipidemia, unspecified (principal); R73.02 Impaired glucose tolerance (oral); E03.9 Hypothyroidism, unspecified
CPT/HCPCS: 36415; 80053; 80061; 83036; 83721; 84443

== ENCOUNTER 2019-02-04 14:21 | Outpatient (CLI) | payer MEDICARE ==
--- NOTE | 2019-02-04 15:30 | DEXA Report ---
Reason: POSTMENOPAUSAL Procedure Date: 02/04/2019 Accession Number: [id number] / [id number] Procedure: DEX - Dexa Spine and/or Hip CPT Code: FULL RESULT: EXAM: Dexa Spine and/or Hip DATE: 02/04/2019 2:57 PM CLINICAL HISTORY: Postmenopausal osteoporosis screening. TECHNIQUE: Dual energy x-ray absorptiometry (DXA) was performed on a Scards System. Regions measured are the AP Spine, femoral neck, and if needed forearm. COMPARISON: The 2016 and older scans are not directly comparable because he were performed on a unit from a different software sales executive. In accordance with the International Society for Clinical Densitometry (ISCD) guidelines, data from previous exams may be reanalyzed using current recommendations and techniques. This is done to allow a more accurate basis for comparison with the current study. FINDINGS: The data for the lumbar spine is as follows: BMD (g/cm/cm) T-SCORE Z-SCORE REGION L1 0.976 -1.3 -0.4 L2 1.420 1.8 2.8 L3 1.428 1.9 2.8 L4 1.301 0.8 1.8 TOTAL 1.285 0.9 1.8 NOTE: All evaluable vertebrae are used for classification The data for the hip is as follows: BMD (g/cm/cm) T-SCORE Z-SCORE REGION Neck 0.700 -2.4 -1.2 TOTAL 0.809 -1.6 -0.6 NOTE: The femoral neck or total proximal femur, whichever is lowest, is used for classification. IMPRESSION: THE WHO CLASSIFICATION BASED ON THE INTERNATIONAL REFERENCE STANDARD IS OSTEOPENIA. THE FRACTURE RISK IS INCREASED. RECOMMENDATION: Patients with diagnosis of osteoporosis or osteopenia should have regular bone mineral density assessment. For those eligible for Medicare, routine testing is allowed once every 2 years. Testing frequency can be increased for patients who have rapidly progressing disease or for those who are receiving medical therapy to restore bone mass. COMMENT: World Health Organization (WHO) definitions for osteoporosis and osteopenia: NORMAL BMD: T-score at -1.0 or higher, fracture risk is low OSTEOPENIA BMD: T-score between -1.0 and -2.5, fracture risk is increased. OSTEOPOROSIS BMD: T-score at -2.5 or lower, fracture risk is high. National Osteoporosis Foundation recommends: 1. Obtain adequate dietary calcium (at least 1200 mg per day) and vitamin D (400-800 international units per day). 2. Participate, as appropriate, in regular weightbearing and muscle-strengthening exercise. 3. Avoid tobacco use and reduce alcohol and caffeine intake. 4. For more detailed information see the website at www.NOF.org.
== END 2019-02-04 14:22 | disposition home or self-care (01) ==
LOC: DI 14:21
PROVIDERS: ATTEND Internal Medicine
DX: M85.88 Other specified disorders of bone density and structure, other site (principal)
CPT/HCPCS: 77080

== ENCOUNTER 2019-02-04 14:22 | Outpatient (CLI) | payer MEDICARE ==
--- NOTE | 2019-02-04 15:49 | Mammography Report ---
Reason: MAMMOGRAPHIC SCREENING FOR BREAST CANCER Procedure Date: 02/04/2019 Accession Number: [id number] / [id number] Procedure: MERYL - Screening Mammo Impl w/Geremias CPT Code: FULL RESULT: EXAM: Screening Mammo Impl w/Geremias DATE: 02/04/2019 3:21 PM CLINICAL HISTORY: Screening TECHNIQUE: (B) - Bilateral CC and MLO views were obtained. COMPARISON: 10/04/2016, 08/22/2014 PARENCHYMAL PATTERN: (A) - The breasts demonstrate scattered fibroglandular densities bilaterally. FINDINGS: Bilateral encapsulated implants with evidence of bilateral intracapsular rupture. There are no suspicious masses, calcifications, or areas of distortion. IMPRESSION: Benign findings. BI-RADS category 2. RECOMMENDATION: (ANNUAL) - Recommend routine annual screening mammography. BI-RADS CATEGORY: (2) - Benign Findings. STANDARD QUALIFYING STATEMENTS: 1. This examination was not reviewed with the aid of Computer-Aided Detection (CAD). 2. A negative or benign imaging report should not preclude biopsy if clinically suspicious findings are present. 3. Dense breasts may obscure an underlying neoplasm. 4. This examination was reviewed with the aid of 3D breast imaging (tomosynthesis).
== END 2019-02-04 14:23 | disposition home or self-care (01) ==
LOC: DI 14:22
PROVIDERS: ATTEND Internal Medicine
DX: Z12.31 Encounter for screening mammogram for malignant neoplasm of breast (principal); T85.898A Other specified complication of other internal prosthetic devices, implants and grafts, initial encounter
CPT/HCPCS: 77063; 77067

== ENCOUNTER 2019-10-19 08:18 | Outpatient (CLI) | payer MEDICARE ==
[2019-10-19 08:31] LABS: BASOPHILS % (AUTO) 0.3 %; EOSINOPHILS # (AUTO) 0.1 10^3/uL (0.0-0.7); EOSINOPHILS % (AUTO) 1.2 %; LYMPHOCYTES # (AUTO) 2.7 10^3/uL (1.5-3.5); MEAN CORPUSCULAR HEMOGLOBIN 31.3 pg (27.0-31.0); MEAN CORPUSCULAR HGB CONC 32.3 g/dL (32.0-36.0); MEAN CORPUSCULAR VOLUME 96.9 fL (81.0-99.0); MONOCYTES # (AUTO) 0.7 10^3/uL (0.0-1.0); MONOCYTES % (AUTO) 7.6 %; NEUTROPHILS # (AUTO) 5.3 10^3/uL (1.5-6.6); NEUTROPHILS % (AUTO) 59.6 %; PLT - PLATELET COUNT 323 10^3/uL (130-450); RED BLOOD COUNT 4.15 10^6/uL (4.20-5.40); RED CELL DISTRIBUTION WIDTH 12.8 % (12.0-15.0); WHITE BLOOD COUNT 8.9 x10^3/uL (4.8-10.8)
[2019-10-19 08:51] LABS: ALBUMIN 4.5 g/dL (3.2-5.5); ALBUMIN/GLOBULIN RATIO 1.2 (1.0-2.2); BILIRUBIN,TOTAL 0.4 mg/dL (0.2-1.0); CREATININE 1.1 mg/dL (0.4-1.0); TOTAL PROTEIN 8.3 g/dL (6.7-8.2)
[2019-10-19 09:09] LABS: THYROID STIMULATING HORMONE 1.98 uIU/mL (0.34-5.60)
[2019-10-19 09:11] LABS: FREE T4 (FREE THYROXINE) 1.02 ng/dL (0.58-1.64)
== END 2019-10-19 08:19 | disposition home or self-care (01) ==
LOC: LAB 08:18
PROVIDERS: ATTEND Family Medicine
DX: I10 Essential (primary) hypertension (principal); E03.9 Hypothyroidism, unspecified; E78.5 Hyperlipidemia, unspecified
CPT/HCPCS: 36415; 80053; 84439; 84443; 84481; 85025

== ENCOUNTER 2019-12-29 10:52 | Outpatient (CLI) | payer MEDICARE ==
--- NOTE | 2019-12-30 01:54 | XRAY Report ---
Reason: RIGHT WRIST CARPAL TUNNEL SYNDROME Procedure Date: 12/29/2019 Accession Number: [id number] / [id number] Procedure: WCP - Wrist 3 View RT CPT Code: Final Report FULL RESULT: EXAM: RIGHT WRIST RADIOGRAPHY EXAM DATE: 12/29/2019 10:52 AM. CLINICAL HISTORY: RIGHT WRIST CARPAL TUNNEL SYNDROME. Wrist pain. COMPARISON: None. TECHNIQUE: 3 views. FINDINGS: Bones: No acute fracture seen. Small chronic appearing ossicle projecting anterior to the lunate on the lateral view. Joints: No dislocation seen. Mild degenerative joint disease in the triscaphe joint. Soft Tissues: Grossly unremarkable. IMPRESSION: 1. No acute fracture or dislocation seen. 2. Mild degenerative joint disease in the triscaphe joint. 3. Small old appearing ossicle projecting anterior to the lunate on the lateral view. RADIA
== END 2019-12-29 23:59 | disposition home or self-care (01) ==
LOC: DI.WCP 10:52
PROVIDERS: ATTEND Family Medicine
DX: M19.031 Primary osteoarthritis, right wrist (principal)

== ENCOUNTER 2020-03-22 09:52 | Outpatient (CLI) | payer MEDICARE ==
--- NOTE | 2020-03-22 11:25 | XRAY Report ---
PROCEDURE: Knee 3 View LT INDICATIONS: LT KNEE JOINT CREPITUS TECHNIQUE: 3 views of the left knee(s) were acquired. COMPARISON: None. FINDINGS: Bones: No fractures or dislocations. No suspicious bony lesions. Mild to moderate degenerative kne e joint osteoarthritis is present best seen at the medial compartment and the lateral facet of the pa tellofemoral joint where narrowing of the joint space indicates cartilage erosion Soft tissues: No joint effusion. No suspicious soft tissue calcifications. IMPRESSION: Mild to moderate osteoarthritis at the medial compartment and lateral facet of the mathews lofemoral joint. No effusion or loose body. Reviewed by: Karl Yip MD on 03/22/2020 11:24 AM PDT Approved by: Karl Yip MD on 03/22/2020 11:24 AM PDT Station ID: [id number]
== END 2020-03-22 09:53 | disposition home or self-care (01) ==
LOC: DI 09:52
PROVIDERS: ATTEND Family Medicine
DX: M17.12 Unilateral primary osteoarthritis, left knee (principal)

== ENCOUNTER 2020-05-18 11:15 | Day surgery (SDC) | payer MEDICARE ==
[2020-05-18] MEDS ORDERED: LACTATED RINGERS 1,000 ML IV ONE ×2 (11:21→13:56)
[2020-05-18] MEDS ORDERED: SCOPOLAMINE PATCH TOP ONE (11:28)
[2020-05-18] MEDS ORDERED: fentaNYL 250 MCG/5 ML VIAL IVP ONE (13:27)
[2020-05-18] MEDS ORDERED: MIDAZOLAM 2 MG/2 ML VIAL IVP ONE (13:27)
[2020-05-18 14:19] VITALS: BP 157/83
== END 2020-05-18 11:16 | disposition home or self-care (01) ==
LOC: SDS 11:15
PROVIDERS: ATTEND Surgery
DX: Z12.11 Encounter for screening for malignant neoplasm of colon (principal); K64.4 Residual hemorrhoidal skin tags; K57.30 Diverticulosis of large intestine without perforation or abscess without bleeding; Z86.010 Personal history of colon polyps; I10 Essential (primary) hypertension; Z87.891 Personal history of nicotine dependence
CPT/HCPCS: G0105; J3010; J3490; J7120

== ENCOUNTER 2020-05-29 15:59 | Outpatient (CLI) | payer SELFPAY | END 2020-05-29 16:00 | disposition home or self-care (01) | LOC: COV 15:59 | PROVIDERS: ATTEND Family Medicine | DX: Z20.828 Contact with and (suspected) exposure to other viral communicable diseases (principal) ==

== ENCOUNTER 2020-06-15 14:25 | Emergency (ER) | payer MEDICARE ==
--- NOTE | 2020-06-15 14:35 | ED Physician Documentation ---
History of Present Illness - Stated complaint Stated Complaint: MHE - History obtained from History obtained from: Police - History of Present Illness Timing: Prior to arrival - Additonal information Additional information: 69-year-old female is brought into the emergency department for mental health evaluation by [facility]. Patient called [facility] this morning when she began to get hopeless in the care of her . She simply states that she cannot manage him anymore as he has gotten older, more demented and meaner. On her possession in her purse is a prescription for Ativan. She reports that she has drank today. Patient verbally expresses that she does not wish to harm herself but she is having a very difficult time coping with her at home. She denies access to guns or weapons On initial exam in the room patient is tearful, sobbing, difficult to redirect in conversation. She did express to the [facility] office for her concern about her while she is away as well as her pets Review of Systems Constitutional: reports: Reviewed and negative Ears: reports: Reviewed and negative Nose: reports: Reviewed and negative Throat: reports: Reviewed and negative Cardiac: reports: Reviewed and negative Respiratory: reports: Reviewed and negative GI: reports: Reviewed and negative : reports: Reviewed and negative Neurologic: reports: Reviewed and negative Psychiatric: reports: Depressed, Anxiety, Insomnia. 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 : None HEENT: Chronic vision loss Psych: None Musculoskeletal: Osteoarthritis Derm: None - Past Surgical History Past Surgical History: Yes General: Colonoscopy Ortho: Amputation Derm: Skin cancer surgery - Present Medications Home Medications: Ambulatory Orders Medication Instructions Recorded Confirmed Zolpidem Tartrate [Ambien] 10 mg PO QPM 01/15/17 05/18/20 Cholecalciferol (Vitamin D3) 400 unit PO DAILY 04/30/17 05/18/20 [Vitamin D3] Levothyroxine [Synthroid] 75 mcg PO QDAC 04/30/17 05/18/20 [place]-3 Fatty Acids/Fish Oil [Fish 1 each PO DAILY 04/30/17 05/18/20 Oil 1,000 mg Softgel] traMADol [Ultram] 100 mg PO ONCE PRN 04/30/17 05/18/20 - Allergies Allergies/Adverse Reactions: Allergies Allergy/AdvReac Type Severity Reaction Status Date / Time trazodone Allergy Hallucinati Verified 06/15/20 14:41 ons - Social History Does the pt smoke?: No Smoking Status: Never smoker Does the pt drink ETOH?: No Does the pt have substance abuse?: No - Immunizations Immunizations are current?: Yes - POLST Patient has POLST: No PD ED PE EXPANDED - General General: Alert, Disheveled, poorly kept, Anxious, Other (Crying and tearful) - HEENT HEENT: PERRL, EOMI - Neck Neck: Supple w/out meningeal sx. No: Adenopathy - Cardiac Cardiac: Regular Rate, Radial strong equal - Respiratory Respiratory: Clear to ausultation chato. No: Distress, Labored - Abdomen Abdomen: Normal Bowel sounds. No: Tender to palpation - Extremities Extremities: Normal - Neuro Neuro: Alert and Oriented X 3, CNII-XII intact - GCS Motor: Obeys Commands Verbal: Oriented - Psych Psych: Depressed, Tearful, Anxious. No: Suicidal, Auditory hallucinations, Visual hallucinations Results - Vitals Vitals: Vital Signs - 24 hr 06/15/20 06/15/20 14:27 20:07 Temperature 37.1 C 36.7 C Heart Rate 104 H 79 Respiratory 20 18 Rate Blood Pressure 159/79 H 120/54 L O2 Saturation 95 99 Oxygen O2 Source Room air - Labs Labs: Laboratory Tests 06/15/20 06/15/20 06/15/20 14:38 14:38 14:38 WBC 9.9 RBC 4.06 L Hgb 13.2 Hct 39.2 MCV 96.6 MCH 32.5 H MCHC 33.7 RDW 12.5 Plt Count 280 MPV 9.8 Neut # (Auto) 5.3 Lymph # (Auto) 3.7 H Bullock # (Auto) 0.7 Eos # (Auto) 0.2 Baso # (Auto) 0.0 Absolute Nucleated RBC 0.00 Nucleated RBC % 0.0 Sodium 139 Potassium 3.6 Chloride 102 Carbon Dioxide 23 Anion Gap 14.0 H BUN 16 Creatinine 0.9 Estimated GFR (MDRD) 62 L Glucose 110 H Calcium 9.5 Total Bilirubin 0.4 AST 18 ALT 17 Alkaline Phosphatase 72 Total Protein 7.5 Albumin 4.2 Globulin 3.3 Albumin/Globulin Ratio 1.3 Lipase 28 TSH 2.30 Urine Color Urine Clarity Urine pH Ur Specific [place] Urine Protein Urine Glucose (UA) Urine Ketones Urine Occult Blood Urine Nitrite Urine Bilirubin Urine Urobilinogen Ur Leukocyte Esterase Ur Microscopic Review Urine Culture Comments Salicylates < 6.0 Urine Opiates Screen Ur Oxycodone Screen Urine Methadone Screen Ur Propoxyphene Screen Acetaminophen < 10 L Ur Barbiturates Screen Ur Tricyclics Screen Ur Phencyclidine Scrn Ur Amphetamine Screen U Methamphetamines Scrn U Benzodiazepines Scrn Urine Cocaine Screen U Cannabinoids Screen Ethyl Alcohol 187.7 06/15/20 06/15/20 06/15/20 14:50 19:11 20:53 WBC RBC Hgb Hct MCV MCH MCHC RDW Plt Count MPV Neut # (Auto) Lymph # (Auto) Bullock # (Auto) Eos # (Auto) Baso # (Auto) Absolute Nucleated RBC Nucleated RBC % Sodium Potassium Chloride Carbon Dioxide Anion Gap BUN Creatinine Estimated GFR (MDRD) Glucose Calcium Total Bilirubin AST ALT Alkaline Phosphatase Total Protein Albumin Globulin Albumin/Globulin Ratio Lipase TSH Urine Color YELLOW Urine Clarity CLEAR Urine pH 6.0 Ur Specific [place] <=1.005 Urine Protein NEGATIVE Urine Glucose (UA) NEGATIVE Urine Ketones NEGATIVE Urine Occult Blood NEGATIVE Urine Nitrite NEGATIVE Urine Bilirubin NEGATIVE Urine Urobilinogen 0.2 (NORMAL) Ur Leukocyte Esterase NEGATIVE Ur Microscopic Review NOT INDICATED Urine Culture Comments NOT INDICATED Salicylates Urine Opiates Screen POSITIVE H Ur Oxycodone Screen NEGATIVE Urine Methadone Screen NEGATIVE Ur Propoxyphene Screen NEGATIVE Acetaminophen Ur Barbiturates Screen NEGATIVE Ur Tricyclics Screen NEGATIVE Ur Phencyclidine Scrn NEGATIVE Ur Amphetamine Screen NEGATIVE U Methamphetamines Scrn NEGATIVE U Benzodiazepines Scrn POSITIVE H Urine Cocaine Screen NEGATIVE U Cannabinoids Screen NEGATIVE Ethyl Alcohol 107.7 68.9 PD MEDICAL DECISION MAKING - ED course Complexity details: reviewed results, re-evaluated patient, considered differential, d/w patient ED course: 69-year-old female was brought into the emergency department by [facility] office for mental health evaluation. Patient denies thoughts of self- harm however she does endorse to this provider that she is having a very difficult time managing the care of her at home. She describes him as becoming increasingly mean and difficult to deal with. She called [facility] not because of thoughts of self-harm but because she could not tolerate it anymore. On exam it does appear that she is acutely intoxicated with a blood alcohol level that is quite elevated. We will allow her time in the emergency department to metabolize her alcohol and redraw. Once we are able to medically clear her I will request a telepsych consult and or a DCR evaluation overnight to help the patient with acute coping strategies. I did also request social work to see the patient and they have reported to me that they cannot complete the mental health exam due to her intoxication. After appropriate time in the emergency department patient had metabolized her alcohol and was much less tearful. She is no longer legally intoxicated. She expressed to me that she has no desire to harm herself and she never would. She is expressing frustration with her 's health, the change in his demeanor and the period of times that she feels isolated. She does report to me that she has a home health nurse that comes in to help with his care and she has found that helpful. She is in frequent contact with the palliative care social contact worker and that is also helpful. Patient reports to me that she thinks that her husbandhas more care needs than she can provide and she is struggling with the decision of placing him into an assisted living facility. She also describes close friends with whom she can reach out. I have offered the patient the opportunity to speak with the telepsych professional but she has declined. She feels that she has gotten some respite while here in the emergency department. She is adamant that she has no harm to herself and would like to be discharged home. We discussed that at any point she may return to the emergency department for hot thoughts of self-harm Departure - Departure Disposition: 01 Home, Self Care Clinical Impression: Mental and behavioral problem, Anxiety Elevated ETOH level Qualifiers: Blood alcohol level: level not specified Qualified Code(s): R78.0 - Finding of alcohol in blood Comments: Brianna, I can understand how frustrating and difficult it is to be a caregiver for somebody whose health is failing. I am so sorry that you are experiencing the isolation and frustration with your 's demeanor. Please continue to follow-up with the social contact worker and the home health nurse. I do think that you would benefit from some counseling by an outside therapist to talk about your concerns. Please discuss this emergency department visit with your primary care doctor. If at any point you feel unsafe or have thoughts of self-harm please return immediately to the ER. If at any point you would like to speak with a psychiatrist or mental health professional please return immediately to the emergency department
[2020-06-15 14:47] LABS: BASOPHILS % (AUTO) 0.4 %; EOSINOPHILS # (AUTO) 0.2 10^3/uL (0.0-0.7); EOSINOPHILS % (AUTO) 1.7 %; HGB - HEMOGLOBIN 13.2 g/dL (12.0-16.0); LYMPHOCYTES # (AUTO) 3.7 10^3/uL (1.5-3.5); LYMPHOCYTES % (AUTO) 37.1 %; MEAN CORPUSCULAR HEMOGLOBIN 32.5 pg (27.0-31.0); MEAN CORPUSCULAR HGB CONC 33.7 g/dL (32.0-36.0); MEAN CORPUSCULAR VOLUME 96.6 fL (81.0-99.0); MEAN PLATELET VOLUME 9.8 fL (7.9-10.8); MONOCYTES # (AUTO) 0.7 10^3/uL (0.0-1.0); NEUTROPHILS # (AUTO) 5.3 10^3/uL (1.5-6.6); NEUTROPHILS % (AUTO) 53.5 %; PLT - PLATELET COUNT 280 10^3/uL (130-450); RED BLOOD COUNT 4.06 10^6/uL (4.20-5.40); RED CELL DISTRIBUTION WIDTH 12.5 % (12.0-15.0); WHITE BLOOD COUNT 9.9 x10^3/uL (4.8-10.8)
[2020-06-15 15:03] LABS: MUDS CUTOFF CONCENTRATIONS CUTOFF CONC BELOW:
[2020-06-15 15:06] LABS: BILIRUBIN,URINE NEGATIVE (NEGATIVE); GLUCOSE, URINE (UA) NEGATIVE (NEGATIVE); KETONES,URINE (UA) NEGATIVE (NEGATIVE); LEUKOCYTE ESTERASE, URINE NEGATIVE (NEGATIVE); NITRITE,URINE NEGATIVE (NEGATIVE); OCCULT BLOOD,URINE NEGATIVE (NEGATIVE); PROTEIN,URINE NEGATIVE (NEGATIVE); UROBILINOGEN,URINE 0.2 (NORMAL) E.U./dL (NORMAL)
[2020-06-15 15:07] LABS: ACETAMINOPHEN < 10 ug/mL (10-30); ALBUMIN 4.2 g/dL (3.2-5.5); ALBUMIN/GLOBULIN RATIO 1.3 (1.0-2.2); ALKALINE PHOSPHATASE 72 IU/L (42-121); ALT ALANINE AMINOTRANSFERASE 17 IU/L (10-60); AST ASPARTATE AMINOTRANSFERASE 18 IU/L (10-42); BILIRUBIN,TOTAL 0.4 mg/dL (0.2-1.0); BUN - BLOOD UREA NITROGEN 16 mg/dL (6-20); CALCIUM 9.5 mg/dL (8.5-10.3); CARBON DIOXIDE - CO2 23 mmol/L (21-32); CHLORIDE 102 mmol/L (101-111); CREATININE 0.9 mg/dL (0.4-1.0); GLUCOSE 110 mg/dL (70-100); LIPASE 28 U/L (22-51); SALICYLATE < 6.0 mg/dL; SODIUM 139 mmol/L (135-145); TOTAL PROTEIN 7.5 g/dL (6.7-8.2)
[2020-06-15 15:08] LABS: CLARITY,URINE CLEAR (CLEAR)
[2020-06-15 15:21] LABS: AMPHETAMINE SCREEN,URINE NEGATIVE (NEGATIVE); BENZODIAZEPINES SCREEN, URINE POSITIVE (NEGATIVE); COCAINE SCREEN URINE NEGATIVE (NEGATIVE); METHAMPHETAMINES SCREEN, URINE NEGATIVE (NEGATIVE); OPIATE SCREEN, URINE POSITIVE (NEGATIVE)
[2020-06-15 15:22] LABS: METHADONE SCREEN, URINE NEGATIVE (NEGATIVE); OXYCODONE SCREEN, URINE NEGATIVE (NEGATIVE); PROPOXYPHENE SCREEN, URINE NEGATIVE (NEGATIVE); TRICYCLIC ANTIDEPRESSANT,URINE NEGATIVE (NEGATIVE)
[2020-06-15 21:31] VITALS: BP 159/74
== END 2020-06-15 21:30 | disposition home or self-care (01) ==
LOC: EDUNIT# → ED 14:25
DX: F41.9 Anxiety disorder, unspecified (principal); F32.9 Major depressive disorder, single episode, unspecified; F10.929 Alcohol use, unspecified with intoxication, unspecified; Z20.828 Contact with and (suspected) exposure to other viral communicable diseases; Z63.79 Other stressful life events affecting family and household
CPT/HCPCS: 36415; 80053; 81003; 83690; 84443; 85025; 99283; U0004; 80306; 80307; 80320; 80329; 81001; 87086

== ENCOUNTER 2020-10-23 08:00 | Outpatient (CLI) | payer MEDICARE ==
[2020-10-23 12:30] LABS: BASOPHILS # (AUTO) 0.1 10^3/uL (0.0-0.1); BASOPHILS % (AUTO) 0.6 %; EOSINOPHILS # (AUTO) 0.2 10^3/uL (0.0-0.7); EOSINOPHILS % (AUTO) 2.4 %; HCT - HEMATOCRIT 39.7 % (37.0-47.0); HGB - HEMOGLOBIN 12.8 g/dL (12.0-16.0); LYMPHOCYTES % (AUTO) 24.5 %; MEAN CORPUSCULAR HEMOGLOBIN 31.8 pg (27.0-31.0); MEAN CORPUSCULAR HGB CONC 32.2 g/dL (32.0-36.0); MEAN CORPUSCULAR VOLUME 98.5 fL (81.0-99.0); MEAN PLATELET VOLUME 10.7 fL (7.9-10.8); MONOCYTES # (AUTO) 0.5 10^3/uL (0.0-1.0); MONOCYTES % (AUTO) 6.3 %; NEUTROPHILS # (AUTO) 5.5 10^3/uL (1.5-6.6); NEUTROPHILS % (AUTO) 65.8 %; PLT - PLATELET COUNT 258 10^3/uL (130-450); RED BLOOD COUNT 4.03 10^6/uL (4.20-5.40); RED CELL DISTRIBUTION WIDTH 12.7 % (12.0-15.0); WHITE BLOOD COUNT 8.3 x10^3/uL (4.8-10.8)
[2020-10-23 12:52] LABS: THYROID STIMULATING HORMONE 4.19 uIU/mL (0.34-5.60)
[2020-10-23 12:54] LABS: ESTIMATED AVERAGE GLUCOSE 108 mg/dL (70-100); HEMOGLOBIN A1c% 5.4 % (4.27-6.07)
[2020-10-23 13:00] LABS: ALBUMIN 4.4 g/dL (3.2-5.5); ALBUMIN/GLOBULIN RATIO 1.4 (1.0-2.2); ALKALINE PHOSPHATASE 63 IU/L (42-121); ALT ALANINE AMINOTRANSFERASE 26 IU/L (10-60); AST ASPARTATE AMINOTRANSFERASE 34 IU/L (10-42); BILIRUBIN,TOTAL 0.9 mg/dL (0.2-1.0); BUN - BLOOD UREA NITROGEN 21 mg/dL (6-20); CALCIUM 10.1 mg/dL (8.5-10.3); CARBON DIOXIDE - CO2 29 mmol/L (21-32); CHLORIDE 100 mmol/L (101-111); CHOL/HDL RATIO 3.6 (<4.4); CHOLESTEROL 280 mg/dL; CREATININE 1.1 mg/dL (0.4-1.0); GFR - MDRD 49 (>89); GLUCOSE 99 mg/dL (70-100); HDL CHOLESTEROL 77 mg/dL; LDL CHOLESTEROL,CALCULATED 168 mg/dL; LDL/HDL RATIO 2.2 (<4.4); POTASSIUM 4.4 mmol/L (3.5-5.0); SODIUM 138 mmol/L (135-145); TOTAL PROTEIN 7.6 g/dL (6.7-8.2); TRIGLYCERIDES 174 mg/dL; VLDL CHOLESTEROL 35 mg/dL
== END 2020-10-23 23:59 | disposition home or self-care (01) ==
LOC: LAB.WCP 08:00
PROVIDERS: ATTEND Family Medicine
DX: E78.5 Hyperlipidemia, unspecified (principal); E03.9 Hypothyroidism, unspecified; I10 Essential (primary) hypertension; R73.02 Impaired glucose tolerance (oral); Z79.891 Long term (current) use of opiate analgesic; K21.9 Gastro-esophageal reflux disease without esophagitis; G44.209 Tension-type headache, unspecified, not intractable; F41.1 Generalized anxiety disorder; V89.2XXS Person injured in unspecified motor-vehicle accident, traffic, sequela
CPT/HCPCS: 36415; 80053; 80061; 83036; 83721; 84443; 85025

== ENCOUNTER 2021-05-01 09:33 | Outpatient (CLI) | payer MEDICARE ==
[2021-05-01 12:16] LABS: CALCIUM 9.8 mg/dL (8.5-10.3); POTASSIUM 4.8 mmol/L (3.5-5.0)
== END 2021-05-01 23:59 | disposition home or self-care (01) ==
LOC: LAB.WCP 09:33
PROVIDERS: ATTEND Family Medicine
DX: I10 Essential (primary) hypertension (principal)
CPT/HCPCS: 36415; 80048

== ENCOUNTER 2021-05-24 08:35 | Outpatient (CLI) | payer MEDICARE ==
[2021-05-24 12:26] LABS: ALBUMIN 4.4 g/dL (3.2-5.5); ALBUMIN/GLOBULIN RATIO 1.3 (1.0-2.2); ALKALINE PHOSPHATASE 68 IU/L (42-121); ALT ALANINE AMINOTRANSFERASE 24 IU/L (10-60); AST ASPARTATE AMINOTRANSFERASE 21 IU/L (10-42); BILIRUBIN,TOTAL 0.8 mg/dL (0.2-1.0); BUN - BLOOD UREA NITROGEN 18 mg/dL (6-20); CALCIUM 9.9 mg/dL (8.5-10.3); CARBON DIOXIDE - CO2 30 mmol/L (21-32); CHLORIDE 100 mmol/L (101-111); CHOL/HDL RATIO 4.9 (<4.4); CHOLESTEROL 290 mg/dL; CREATININE 0.9 mg/dL (0.4-1.0); GFR - MDRD 62 (>89); GLUCOSE 102 mg/dL (70-100); HDL CHOLESTEROL 59 mg/dL; LDL CHOLESTEROL,CALCULATED 195 mg/dL; LDL/HDL RATIO 3.3 (<4.4); POTASSIUM 4.6 mmol/L (3.5-5.0); SODIUM 139 mmol/L (135-145); TOTAL PROTEIN 7.8 g/dL (6.7-8.2); TRIGLYCERIDES 182 mg/dL; VLDL CHOLESTEROL 36 mg/dL
[2021-05-24 12:27] LABS: BASOPHILS % (AUTO) 0.4 %; EOSINOPHILS # (AUTO) 0.1 10^3/uL (0.0-0.7); EOSINOPHILS % (AUTO) 2.4 %; HCT - HEMATOCRIT 40.3 % (37.0-47.0); HGB - HEMOGLOBIN 13.1 g/dL (12.0-16.0); LYMPHOCYTES # (AUTO) 1.2 10^3/uL (1.5-3.5); LYMPHOCYTES % (AUTO) 24.8 %; MEAN CORPUSCULAR HEMOGLOBIN 31.5 pg (27.0-31.0); MEAN CORPUSCULAR HGB CONC 32.5 g/dL (32.0-36.0); MEAN CORPUSCULAR VOLUME 96.9 fL (81.0-99.0); MEAN PLATELET VOLUME 10.8 fL (7.9-10.8); MONOCYTES # (AUTO) 0.6 10^3/uL (0.0-1.0); MONOCYTES % (AUTO) 12.7 %; NEUTROPHILS # (AUTO) 2.9 10^3/uL (1.5-6.6); NEUTROPHILS % (AUTO) 59.3 %; PLT - PLATELET COUNT 239 10^3/uL (130-450); RED BLOOD COUNT 4.16 10^6/uL (4.20-5.40); RED CELL DISTRIBUTION WIDTH 12.9 % (12.0-15.0)
[2021-05-24 12:34] LABS: THYROID STIMULATING HORMONE 4.24 uIU/mL (0.34-5.60)
== END 2021-05-24 23:59 | disposition home or self-care (01) ==
LOC: LAB.WCP 08:35
PROVIDERS: ATTEND Family Medicine
DX: K21.9 Gastro-esophageal reflux disease without esophagitis (principal); G44.209 Tension-type headache, unspecified, not intractable; F41.1 Generalized anxiety disorder; E03.9 Hypothyroidism, unspecified; E78.5 Hyperlipidemia, unspecified; I10 Essential (primary) hypertension; M54.5 Low back pain; G89.29 Other chronic pain
CPT/HCPCS: 36415; 80053; 80061; 83721; 84443; 85025

== ENCOUNTER 2021-12-26 14:39 | Outpatient (CLI) | payer MEDICARE ==
--- NOTE | 2021-12-26 15:07 | CT Report ---
PROCEDURE: HEAD WO INDICATIONS: CONCUSSION WITH LOSS OF CONSCIOUNESS TECHNIQUE: Noncontrast 4.5 mm thick angled axial sections acquired from the foramen magnum to the vertex. For r adiation dose reduction, the following was used: automated exposure control, adjustment of mA and/or kV according to patient size. COMPARISON: None. FINDINGS: Image quality: Excellent. CSF spaces: Basal cisterns are patent. No extra-axial fluid collections. Ventricles are normal in size and shape. Brain: No midline shift. No intracranial masses or hemorrhage. Vergara-white matter interface is norm al. There is mild, diffuse cerebral volume loss. There are mild periventricular and subcortical white matter chronic microvascular ischemic changes. Skull and face: Calvarium and visualized facial bones are intact, without suspicious lesions. Sinuses: Visualized sinuses and mastoids are clear. IMPRESSION: No acute intracranial disease process. Reviewed by: Siena Alfaro MD, PhD on 12/26/2021 3:06 PM PDT Approved by: Siena Alfaro MD, PhD on 12/26/2021 3:06 PM PDT Station ID: [id number]
== END 2021-12-26 14:40 | disposition home or self-care (01) ==
LOC: DI 14:39
PROVIDERS: ATTEND Emergency Medicine
DX: S06.0X9A Concussion with loss of consciousness of unspecified duration, initial encounter (principal); S00.03XA Contusion of scalp, initial encounter

== ENCOUNTER 2022-05-09 07:19 | Outpatient (CLI) | payer MEDICARE ==
[2022-05-09 07:41] LABS: BASOPHILS % (AUTO) 0.5 %; EOSINOPHILS # (AUTO) 0.2 10^3/uL (0.0-0.7); EOSINOPHILS % (AUTO) 2.9 %; HCT - HEMATOCRIT 41.3 % (37.0-47.0); HGB - HEMOGLOBIN 13.8 g/dL (12.0-16.0); LYMPHOCYTES # (AUTO) 2.3 10^3/uL (1.5-3.5); LYMPHOCYTES % (AUTO) 38.2 %; MEAN CORPUSCULAR HGB CONC 33.4 g/dL (32.0-36.0); MEAN CORPUSCULAR VOLUME 95.8 fL (81.0-99.0); MONOCYTES # (AUTO) 0.6 10^3/uL (0.0-1.0); MONOCYTES % (AUTO) 9.3 %; NEUTROPHILS # (AUTO) 2.9 10^3/uL (1.5-6.6); NEUTROPHILS % (AUTO) 48.9 %; PLT - PLATELET COUNT 276 10^3/uL (130-450); RED BLOOD COUNT 4.31 10^6/uL (4.20-5.40); RED CELL DISTRIBUTION WIDTH 12.8 % (12.0-15.0); WHITE BLOOD COUNT 5.9 x10^3/uL (4.8-10.8)
[2022-05-09 08:01] LABS: ALBUMIN 4.4 g/dL (3.2-5.5); ALBUMIN/GLOBULIN RATIO 1.4 (1.0-2.2); BILIRUBIN,TOTAL 0.7 mg/dL (0.2-1.0); CALCIUM 9.9 mg/dL (8.5-10.3); CREATININE 1.1 mg/dL (0.4-1.0); POTASSIUM 4.3 mmol/L (3.5-5.0); TOTAL PROTEIN 7.6 g/dL (6.7-8.2)
[2022-05-09 08:17] LABS: THYROID STIMULATING HORMONE 8.49 uIU/mL (0.34-5.60)
[2022-05-09 10:25] LABS: FREE T4 (FREE THYROXINE) 0.95 ng/dL (0.58-1.64)
[2022-05-09 16:25] LABS: ESTIMATED AVERAGE GLUCOSE 111 mg/dL (70-100); HEMOGLOBIN A1c% 5.5 % (4.27-6.07)
== END 2022-05-09 07:20 | disposition home or self-care (01) ==
LOC: LAB 07:19
PROVIDERS: ATTEND Family Medicine
DX: I10 Essential (primary) hypertension (principal); G47.00 Insomnia, unspecified; Z79.891 Long term (current) use of opiate analgesic; R73.02 Impaired glucose tolerance (oral); K21.9 Gastro-esophageal reflux disease without esophagitis; E03.9 Hypothyroidism, unspecified; F32.A Depression, unspecified; E78.5 Hyperlipidemia, unspecified
CPT/HCPCS: 36415; 80053; 83036; 84439; 84443; 85025

== ENCOUNTER 2022-05-16 11:31 | Outpatient (CLI) | payer MEDICARE ==
--- NOTE | 2022-05-16 17:09 | XRAY Report ---
PROCEDURE: Lumbar Spine 2 View INDICATIONS: MUSCLE SPASM TECHNIQUE: 2 views of the lumbar spine were acquired. COMPARISON: Lumbar spine radiographs 05/29/2017 FINDINGS: Bones: 5 [id number] vertebrae are present. Mild left convexity curvature centered at L2-L3. No vertebral body compression fractures. No suspicious bony lesions. Severe disc height loss and endpl ate spurring. Facet arthropathy present at multiple levels. Soft tissues: Overlying bowel gas pattern is normal. Redemonstrated calcifications projecting over t he right renal pelvis, could represent renal stones. IMPRESSION: 1. Severe lumbar spine degenerative changes. 2. No definite acute lumbar spine fracture visualized radiographically. If symptoms persist, follow-u p radiographs and/or CT or MRI may be helpful for further evaluation. Reviewed by: Bentley Palacio MD on 05/16/2022 5:07 PM PDT Approved by: Bentley Palacio MD on 05/16/2022 5:07 PM PDT Station ID: [id number]
== END 2022-05-16 11:32 | disposition home or self-care (01) ==
LOC: DI 11:31
PROVIDERS: ATTEND Family Medicine
DX: M62.830 Muscle spasm of back (principal); M47.816 Spondylosis without myelopathy or radiculopathy, lumbar region; M51.36 Other intervertebral disc degeneration, lumbar region

== ENCOUNTER 2022-09-13 12:05 | Outpatient (CLI) | payer MEDICARE ==
--- NOTE | 2022-09-13 13:15 | XRAY Report ---
PROCEDURE: Shoulder 3 View BILAT INDICATIONS: L SHLDR PX,R JOINT PX TECHNIQUE: 3 views of the shoulder were acquired. COMPARISON: None FINDINGS: Bones: No fractures or dislocations. No suspicious bony lesions. Visualized ribs appear intact. T here is severe bilateral acromial clavicular degenerative narrowing. Mild glenohumeral degenerative n arrowing. No erosions. Soft tissues: No suspicious soft tissue calcifications. Calcific tendinitis is noted on the left. V isualized portions of the lungs are clear. IMPRESSION: Bilateral acromioclavicular and glenohumeral arthritic narrowing. Reviewed by: Nicole Webb MD on 09/13/2022 1:14 PM [facility] Approved by: Nicole Webb MD on 09/13/2022 1:14 PM [facility] Station ID: [id number]
== END 2022-09-13 12:06 | disposition home or self-care (01) ==
LOC: DI 12:05
PROVIDERS: ATTEND Nurse Practitioner
DX: M19.012 Primary osteoarthritis, left shoulder (principal); M19.011 Primary osteoarthritis, right shoulder

== ENCOUNTER 2022-10-02 13:58 | Outpatient (CLI) | payer MEDICARE ==
--- NOTE | 2022-10-03 08:25 | Mammography Report ---
BILATERAL DIGITAL SCREENING MAMMOGRAM 3D/2D WITH AUGMENTATION: 10/02/2022 CLINICAL: Routine screening. Comparison is made to exams dated: 02/04/2019 mammogram, 10/04/2016 mammogram, and 03/11/2012 mammogram - [facility]. Both breasts are almost entirely fatty (category a/<25% glandular tissue). Bilateral breast implants are stable. No significant masses, calcifications, or other findings are seen in either breast. There has been no significant interval change. IMPRESSION: NEGATIVE There is no mammographic evidence of malignancy. A 1 year screening mammogram is recommended. Based on the Tyrer Cuzick model (a risk assessment model) the patients lifetime risk is 3.7% and her 10 year risk is 3.4%. According to the ACR, ACS, and NCCN guidelines, an annual breast MRI exam luis manuel g with mammogram is recommended if the patients lifetime risk is 20% or greater. This exam was interpreted at Station ID: [id number]. NOTE: For mammograms, a report in lay terms will be sent to the patient. Approximately 15% of breast malignancies will not be visualized mammographically. In the management of a palpable breast mass, a negative mammogram must not discourage biopsy of a clinically suspicious lesion. Electronically Signed By: Loida mendez/neris:10/02/2022 16:52:16 ACR BI-RADS Category 1: Negative 3341F PARENCHYMAL PATTERN: (F) - The breast(s) demonstrate(s) diffuse fatty replacement. BI-RADS CATEGORY: (1) - 1 RECOMMENDATION: (ANNUAL) - Recommend routine annual screening mammography. [id number] 1 year screening LATERALITY: (B)
== END 2022-10-02 13:59 | disposition home or self-care (01) ==
LOC: DI 13:58
DX: Z12.31 Encounter for screening mammogram for malignant neoplasm of breast (principal); Z98.82 Breast implant status

== ENCOUNTER 2023-04-17 15:09 | Emergency (ER) | payer OTHER, MEDICARE ==
[2023-04-17 15:21] VITALS: BP 147/64; O2SAT 100
[2023-04-17] MEDS ORDERED: BACITRACIN ZINC OINT 1 PACKET TOP STA (16:01)
[2023-04-17] MEDS ORDERED: TETANUS/DIPHTHERIA/PERTUSSIS 0.5 ML SYRINGE IM ONE (16:01)
[2023-04-17] MEDS ORDERED: AMOX/CLAV 875 MG/125 MG TABLET PO STA (16:08)
--- NOTE | 2023-04-17 16:16 | ED Physician Documentation ---
History of Present Illness - Stated complaint Stated Complaint: RT FINGER LAC - Chief complaint Chief Complaint: Laceration - History obtained from History obtained from: Patient - History of Present Illness Timing: Today Pain level max: 0 Pain level now: 0 - Additonal information Additional information: Patient is a 72-year-old female who was working at [employer] for today, a cat fight, got scratched on the right arm and bit on the right hand. Unknown last tetanus shot. Nothing makes it better or worse. She is not on any blood thinners. Patient is right-handed. 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 HEENT: Chronic vision loss Psych: None Musculoskeletal: Osteoarthritis Derm: None - Past Surgical History Past Surgical History: Yes General: Colonoscopy Ortho: Amputation HEENT: Tonsil/Adenoidectomy Derm: Skin cancer surgery - Present Medications Home Medications: Ambulatory Orders Medication Instructions Recorded Confirmed Zolpidem Tartrate [Ambien] 10 mg PO QPM 01/15/17 04/17/23 Cholecalciferol (Vitamin D3) 400 unit PO DAILY 04/30/17 04/17/23 [Vitamin D3] Levothyroxine [Synthroid] 112 mcg PO QDAC 04/30/17 04/17/23 [place]-3 Fatty Acids/Fish Oil [Fish 1 each PO DAILY 04/30/17 04/17/23 Oil 1,000 mg Softgel] traMADol [Ultram] 100 mg PO ONCE PRN 04/30/17 04/17/23 Amox/Clav 875/125 [Augmentin] 1 tab PO Q12H #20 tablet 04/17/23 LORazepam [Ativan] 0.5 mg PO DAILY PRN 04/17/23 04/17/23 hydroCHLOROthiazide [Hydrodiuril] 12.5 mg PO DAILY 04/17/23 04/17/23 - Allergies Allergies/Adverse Reactions: Allergies Allergy/AdvReac Type Severity Reaction Status Date / Time trazodone Allergy Hallucinati Verified 04/17/23 15:17 ons - Social History Does the pt smoke?: No Smoking Status: Never smoker Does the pt drink ETOH?: No Does the pt have substance abuse?: No - Immunizations Immunizations are current?: Yes - POLST Patient has POLST: No PD ED PE NORMAL - Vitals Vital signs reviewed: Yes - General General: Alert and oriented X 3, No acute distress - Derm Derm: Warm and dry - Extremities Extremities: Other (Multiple superficial scratches to the right forearm. The dorsum of the right hand has a small skin avulsion, approximately 0.5 x 0.5 cm. No active bleeding. Neurovascular intact. Able to move all digits of the hand without pain. No tendon injury.) - Neuro Neuro: Alert and oriented X 3 - Psych Psych: Normal mood, Normal affect Results - Vitals Vitals: Vital Signs - 24 hr 04/17/23 15:13 Temperature 36.6 C Heart Rate 64 Respiratory 16 Rate Blood Pressure 147/64 H O2 Saturation 100 Oxygen O2 Source Room air PD Medical Decision Making - ED course Complexity details: considered differential, d/w patient ED course: Wounds were cleansed and bandaged. There are no wounds that require suturing. Will place on Augmentin for home. Tdap given. L&I paperwork filled out. Patient counseled regarding signs and symptoms for which I believe and urgent re-evaluation would be necessary. Patient with good understanding of and agreement to plan and is comfortable going home at this time This document was made in part using voice recognition software. While efforts are made to proofread this document, sound alike and grammatical errors may occur. Departure - Departure Disposition: 01 Home, Self Care Clinical Impression: Skin avulsion Cat bite Qualifiers: Encounter type: initial encounter Qualified Code(s): W55.01XA - Bitten by cat, initial encounter Condition: Good Instructions: ED Bite Cat, ED Wound Care Follow-Up: Los Juarez MD [Primary Care Provider] - Within 1 week Prescriptions: Amox/Clav 875/125 [Augmentin] 1 tab PO Q12H #20 tablet Comments: Take all antibiotics until gone. Your prescription was sent to the [facility] pharmacy. Please follow-up with your doctor closely for wound checks. As we discussed that the skin is missing from your hand and will need to heal by what is known as secondary intention, this will create a scar, keep the wound clean. Change the bandages daily. You were given a tetanus shot today as well. Forms: PCP List Discharge Date/Time: 04/17/23 16:25
== END 2023-04-17 16:25 | disposition home or self-care (01) ==
LOC: ED 15:09
DX: S61.401A Unspecified open wound of right hand, initial encounter (principal); W55.01XA Bitten by cat, initial encounter; Y92.89 Other specified places as the place of occurrence of the external cause; Y99.0 Civilian activity done for income or pay; Z23 Encounter for immunization; E03.9 Hypothyroidism, unspecified; Z79.899 Other long term (current) drug therapy
CPT/HCPCS: 90715; 99283; A9270

== ENCOUNTER 2023-06-05 07:45 | Outpatient (CLI) | payer MEDICARE ==
[2023-06-05 08:03] LABS: BASOPHILS % (AUTO) 0.4 %; EOSINOPHILS # (AUTO) 0.2 10^3/uL (0.0-0.7); EOSINOPHILS % (AUTO) 2.2 %; HCT - HEMATOCRIT 42.1 % (37.0-47.0); HGB - HEMOGLOBIN 13.8 g/dL (12.0-16.0); LYMPHOCYTES # (AUTO) 2.3 10^3/uL (1.5-3.5); LYMPHOCYTES % (AUTO) 28.1 %; MEAN CORPUSCULAR HEMOGLOBIN 29.9 pg (27.0-31.0); MEAN CORPUSCULAR HGB CONC 32.8 g/dL (32.0-36.0); MEAN CORPUSCULAR VOLUME 91.3 fL (81.0-99.0); MEAN PLATELET VOLUME 10.3 fL (7.9-10.8); MONOCYTES # (AUTO) 0.4 10^3/uL (0.0-1.0); MONOCYTES % (AUTO) 5.4 %; NEUTROPHILS # (AUTO) 5.1 10^3/uL (1.5-6.6); NEUTROPHILS % (AUTO) 63.7 %; PLT - PLATELET COUNT 241 10^3/uL (130-450); RED BLOOD COUNT 4.61 10^6/uL (4.20-5.40); RED CELL DISTRIBUTION WIDTH 12.7 % (12.0-15.0)
[2023-06-05 08:24] LABS: ALBUMIN 4.2 g/dL (3.2-5.5); ALBUMIN/GLOBULIN RATIO 1.5 (1.0-2.2); ALKALINE PHOSPHATASE 67 IU/L (42-121); ALT ALANINE AMINOTRANSFERASE 16 IU/L (10-60); AST ASPARTATE AMINOTRANSFERASE 17 IU/L (10-42); BILIRUBIN,TOTAL 0.4 mg/dL (0.2-1.0); BUN - BLOOD UREA NITROGEN 14 mg/dL (6-20); CALCIUM 10.1 mg/dL (8.5-10.3); CARBON DIOXIDE - CO2 31 mmol/L (21-32); CHLORIDE 105 mmol/L (101-111); CHOL/HDL RATIO 4.7 (<4.4); CHOLESTEROL 237 mg/dL; CREATININE 0.8 mg/dL (0.6-1.3); GFR - MDRD 70 (>89); GLUCOSE 89 mg/dL (74-104); HDL CHOLESTEROL 50 mg/dL; LDL CHOLESTEROL,CALCULATED 158 mg/dL; LDL/HDL RATIO 3.2 (<4.4); POTASSIUM 4.2 mmol/L (3.5-4.5); SODIUM 142 mmol/L (135-145); TRIGLYCERIDES 144 mg/dL (48-352); VLDL CHOLESTEROL 29 mg/dL
[2023-06-05 08:30] LABS: THYROID STIMULATING HORMONE 4.26 uIU/mL (0.34-5.60)
== END 2023-06-05 07:46 | disposition home or self-care (01) ==
LOC: LAB 07:45
PROVIDERS: ATTEND Family Medicine
DX: I10 Essential (primary) hypertension (principal); K21.9 Gastro-esophageal reflux disease without esophagitis; E03.9 Hypothyroidism, unspecified; E78.5 Hyperlipidemia, unspecified; F32.A Depression, unspecified
CPT/HCPCS: 36415; 80053; 80061; 83721; 84443; 85025

== ENCOUNTER 2023-09-19 07:00 | Outpatient (CLI) | payer MEDICARE ==
--- NOTE | 2023-09-19 12:00 | XRAY Report ---
PROCEDURE: Foot 1-2V LT INDICATIONS: LEFT FOOT PAIN TECHNIQUE: 2 views of the foot were acquired. COMPARISON: None. FINDINGS: Bones: There is a lucency at the first metatarsal head. Moderate first MTP degenerative changes, and subchondral lucencies also seen. Amputation of the second toe at the MTP. No obvious osseous erosion, however there is heterotopic ossification adjacent to the second metatars al head. Soft tissues: No suspicious calcifications elsewhere soft tissue swelling. IMPRESSION: No obvious osseous erosions at the second metatarsal head/second MTP. Heterotopic ossification and sw elling is seen in the soft tissues in this location. There is a focal lucency at the first metatarsal head, that may represent a nondisplaced fracture,. M oderate first MTP degenerative changes, with subchondral lucencies likely representing geodes. If there is further concern, consider MRI. Reviewed by: Tien Lakhani MD on 09/19/2023 11:59 AM PST Approved by: Tien Lakhani MD on 09/19/2023 11:59 AM PST Station ID: [id number]
== END 2023-09-19 23:59 | disposition home or self-care (01) ==
LOC: DI.S 07:00
PROVIDERS: ATTEND Physician Assistant Medical
DX: M19.072 Primary osteoarthritis, left ankle and foot (principal); R93.6 Abnormal findings on diagnostic imaging of limbs; R93.89 Abnormal findings on diagnostic imaging of other specified body structures

== ENCOUNTER 2023-10-09 08:40 | Emergency (ER) | payer MEDICARE ==
--- NOTE | 2023-10-09 09:44 | ED Physician Documentation ---
PD HPI ALTERED MENTAL STATUS - Stated complaint Stated Complaint: DIZZY/CONFUSION - Chief complaint Chief Complaint: General - History obtained from History obtained from: Patient - History of Present Illness Timing - onset: How many days ago (3) Timing - duration: Days (3) Timing - details: Abrupt onset, Still present Quality / character: Confused (The patient was sitting at her computer and suddenly felt confused and unable to do simple tasks. This is continued over the subsequent days associated with some intermittent headache. No focal weakness. Some mild blurring of vision on the right.) Associated symptoms: Headache. No: Fever, Stiff neck, Dyspnea, Cough Contributing factors: No: Anticoagulated, Recent med change, Recent illness Basline status: Alert and oriented X 3, Ambulatory Similar symptoms before: Has not had sx before Recently seen: Not recently seen Review of Systems Constitutional: denies: Fever, Chills Eyes: reports: Decreased vision (blurry right eye.) Nose: denies: Rhinorrhea / runny nose, Congestion Throat: denies: Sore throat Cardiac: denies: Chest pain / pressure, Palpitations Respiratory: denies: Dyspnea, Cough Skin: denies: Rash, Lesions Neurologic: reports: Generalized weakness, Headache. 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 HEENT: Chronic vision loss Psych: None Musculoskeletal: Osteoarthritis Derm: None - Past Surgical History Past Surgical History: Yes General: Colonoscopy Ortho: Amputation HEENT: Tonsil/Adenoidectomy Derm: Skin cancer surgery - Present Medications Home Medications: Ambulatory Orders Medication Instructions Recorded Confirmed Zolpidem Tartrate [Ambien] 10 mg PO QPM 01/15/17 04/17/23 Cholecalciferol (Vitamin D3) 400 unit PO DAILY 04/30/17 04/17/23 [Vitamin D3] Levothyroxine [Synthroid] 112 mcg PO QDAC 04/30/17 04/17/23 [place]-3 Fatty Acids/Fish Oil [Fish 1 each PO DAILY 04/30/17 04/17/23 Oil 1,000 mg Softgel] traMADol [Ultram] 100 mg PO ONCE PRN 04/30/17 04/17/23 Amox/Clav 875/125 [Augmentin] 1 tab PO Q12H #20 tablet 04/17/23 LORazepam [Ativan] 0.5 mg PO DAILY PRN 04/17/23 04/17/23 hydroCHLOROthiazide [Hydrodiuril] 12.5 mg PO DAILY 04/17/23 04/17/23 - Allergies Allergies/Adverse Reactions: Allergies Allergy/AdvReac Type Severity Reaction Status Date / Time trazodone Allergy Hallucinati Verified 10/09/23 10:23 ons - Social History Does the pt smoke?: No Smoking Status: Never smoker Does the pt drink ETOH?: No Does the pt have substance abuse?: No - Immunizations Immunizations are current?: Yes - POLST Patient has POLST: No PD ED PE NORMAL - Vitals Vital signs reviewed: Yes - General General: Alert and oriented X 3, No acute distress, Well developed/nourished - HEENT HEENT: Atraumatic, PERRL, EOMI, Pharynx benign - Neck Neck: Supple, no meningeal sign, No adenopathy, No bruit - Cardiac Cardiac: RRR - Respiratory Respiratory: Clear bilaterally - Abdomen Abdomen: Soft, Non tender - Neuro Neuro: Alert and oriented X 3, truck guard 2-12 intact, No motor deficit, No sensory deficit NIHSS - Level of Consciousness Level of consciousness: (0) Alert, Keenly responsive LOC Questions: (0) Answers both Q's correct LOC Commands: (0) Performs both correctly - Gaze Best Gaze: (0) Normal - Visual Visual: (0) No loss - Facial Palsy Facial Palsy: (0) Normal, symmetrical movement - Motor Arms (both separate) Motor Arm (right): (0) No drift Motor Arm (left): (0) No drift - Motor Legs (both separate) Motor Leg (right): (0) No drift Motor Leg (left): (0) No drift - Limb Ataxia Limb Ataxia: (0) Absent - Sensory Sensory: (0) Normal - Best Language Best Language: (0) No aphasia - Dysarthria Dysarthria: (0) Normal - Extinction and Inattention (formally neg Extinction and inattention: (0) No abnormality - Total Score/Results Total Score/Result: 0 Results - Vitals Vitals: Vital Signs - 24 hr 10/09/23 10/09/23 10/09/23 09:00 11:06 12:59 Temperature 36.3 C L Heart Rate 68 69 71 Respiratory 16 16 16 Rate Blood Pressure 143/73 H 163/81 H 147/61 H O2 Saturation 100 100 99 10/09/23 14:39 Temperature 36.1 C L Heart Rate 74 Respiratory 16 Rate Blood Pressure 144/70 H O2 Saturation 95 Oxygen O2 Source Room air - EKG (time done) 11:45 EKG releavant findings:: EKG personally interpreted by author of this note. Relevant findings are: Rhythm: NSR (62) [place]: Normal Intervals: Normal SC QRS: Normal Ischemia: Normal ST segments. No: ST elevation c/w ischemia, ST depression - Labs Labs: Laboratory Tests 10/09/23 10/09/23 10/09/23 11:05 11:05 11:05 WBC 7.9 RBC 4.66 Hgb 13.7 Hct 42.7 MCV 91.6 MCH 29.4 MCHC 32.1 RDW 13.3 Plt Count 270 MPV 10.3 Neut # (Auto) 4.9 Lymph # (Auto) 2.3 [place] # (Auto) 0.5 Eos # (Auto) 0.1 Baso # (Auto) 0.0 Absolute Nucleated RBC 0.00 Nucleated RBC % 0.0 ESR 7 Sodium 137 Potassium 4.1 Chloride 101 Carbon Dioxide 29 Anion Gap 7.0 BUN 14 Creatinine 1.0 Estimated GFR (MDRD) 54 L Glucose 82 Calcium 10.1 Magnesium 1.8 Total Bilirubin 0.4 AST 20 ALT 20 Alkaline Phosphatase 63 Total Protein 7.6 Albumin 4.4 Globulin 3.2 Albumin/Globulin Ratio 1.4 Lipase 16 Vitamin B12 215 - Rads (name of study) head CT and angio Relevant Findings:: Prelim report reviewed (short segment occlusion P2 area without surrounding edema. reconstitutes diatal. No acute leakage. ), EMP independent interpretation of test brain MRI Relevant Findings:: Prelim report reviewed (No acute findings. No CVA. ), EMP independent interpretation of test PD Medical Decision Making - ED course Complexity details: reviewed results (head CT without ICH nor acute findings. It has been 3 days since onset though, so not completely accurate. Will get angio as well, to eval for LVO (ischemic) and aneurysms. May need MRI to eval CVA.), considered differential (confusion and feeling thought process disrupted. No other obvious cause (no toxic, metabolic, infectious cause/symptoms). Consider intracranial (mass, bleed, edema, ischemic). ), d/w patient ED course: no acute bleed, tumors, masses. No seeming infectious, traumatic, so presume functional MUNOZ such as sinus or migrainous/Chronic daily. With CT-A and MRI, I feel we can exclude ICH without having to do LP of spinal fluid. Departure - Departure Disposition: 01 Home, Self Care Clinical Impression: Confusion, Headache Condition: Good Record reviewed to determine appropriate education?: Yes Follow-Up: Los Juarez MD [Primary Care Provider] - Within 1 week Comments: Not completely clear what caused your confusion episode. Could be dehydration, TIA or less likely TGA. MRI ruled out stroke. Drink plenty of fluids. Take a baby aspirin daily. Followup with Dr Juarez and return if worse. Forms: PCP List Discharge Date/Time: 10/09/23 16:28
[2023-10-09 11:21] LABS: BASOPHILS % (AUTO) 0.4 %; EOSINOPHILS # (AUTO) 0.1 10^3/uL (0.0-0.7); EOSINOPHILS % (AUTO) 1.3 %; HCT - HEMATOCRIT 42.7 % (37.0-47.0); HGB - HEMOGLOBIN 13.7 g/dL (12.0-16.0); LYMPHOCYTES # (AUTO) 2.3 10^3/uL (1.5-3.5); LYMPHOCYTES % (AUTO) 29.2 %; MEAN CORPUSCULAR HEMOGLOBIN 29.4 pg (27.0-31.0); MEAN CORPUSCULAR HGB CONC 32.1 g/dL (32.0-36.0); MEAN CORPUSCULAR VOLUME 91.6 fL (81.0-99.0); MEAN PLATELET VOLUME 10.3 fL (7.9-10.8); MONOCYTES # (AUTO) 0.5 10^3/uL (0.0-1.0); MONOCYTES % (AUTO) 6.8 %; NEUTROPHILS # (AUTO) 4.9 10^3/uL (1.5-6.6); PLT - PLATELET COUNT 270 10^3/uL (130-450); RED BLOOD COUNT 4.66 10^6/uL (4.20-5.40); RED CELL DISTRIBUTION WIDTH 13.3 % (12.0-15.0); WHITE BLOOD COUNT 7.9 x10^3/uL (4.8-10.8)
[2023-10-09] MEDS: SODIUM CHLORIDE 0.9% 1,000 ML IV STA (11:21)
[2023-10-09 11:39] LABS: ALBUMIN 4.4 g/dL (3.2-5.5); ALBUMIN/GLOBULIN RATIO 1.4 (1.0-2.2); BILIRUBIN,TOTAL 0.4 mg/dL (0.2-1.0); CALCIUM 10.1 mg/dL (8.5-10.3); MAGNESIUM 1.8 mg/dL (1.7-2.3); POTASSIUM 4.1 mmol/L (3.5-4.5); TOTAL PROTEIN 7.6 g/dL (6.4-8.9)
[2023-10-09] MEDS ORDERED: iohexoL-300 100 ML VIAL ONE (12:35)
[2023-10-09 14:48] VITALS: BP 144/70; O2SAT 95
--- NOTE | 2023-10-09 14:49 | CT Report ---
PROCEDURE: Head WO INDICATIONS: headache 1 month; confusion 2 days TECHNIQUE: Noncontrast 4.5 mm thick angled axial sections acquired from the foramen magnum to the vertex. For r adiation dose reduction, the following was used: automated exposure control, adjustment of mA and/or kV according to patient size. COMPARISON: CT head 12/26/2021. FINDINGS: Image quality: Excellent. CSF spaces: Basal cisterns are patent. No extra-axial fluid collections. Ventricles are normal in size and shape. Brain: No midline shift. No intracranial masses or hemorrhage. Age-related global volume loss and c hronic microvascular ischemic changes. Intracranial atherosclerotic vascular calcifications. Vergara-wh ite matter interface is normal. Skull and face: Calvarium and visualized facial bones are intact, without suspicious lesions. Sinuses: Visualized sinuses and mastoids are clear. IMPRESSION: No acute intracranial pathology. Reviewed by: Diego Schultz MD on 10/09/2023 2:48 PM PST Approved by: Diego Schultz MD on 10/09/2023 2:48 PM PST Station ID: [id number]
--- NOTE | 2023-10-09 15:01 | CT Report ---
PROCEDURE: Angio Head/Neck INDICATIONS: MUNOZ 1 month, confusion/MUNOZ 2 days TECHNIQUE: After the administration of intravenous contrast, 1 mm thick sections acquired from the aortic arch t hrough the [place]. 3-dimensional kceztzj-nibjqszqt-bvgmcsmtfa (MIP) and/or volume renderin g reformats were acquired of the central intracranial vasculature and neck separately. For radiation dose reduction, the following was used: automated exposure control, adjustment of mA and/or kV acco rding to patient size. CONTRAST: Intravenous contrast was given COMPARISON: None. FINDINGS: Image quality: Diagnostic. HEAD CT: Please refer to same day CT of the head. HEAD CT ANGIOGRAPHY: Anterior circulation: Intracranial internal carotid arteries are normal in size and flow with mild a therosclerotic vascular calcifications. The flow within the paired anterior cerebral arteries is nor mal and symmetric. The flow within the middle cerebral arteries is normal and symmetric. The anteri or communicating artery is seen. No aneurysms are seen. Posterior circulation: Visualized portions of the vertebral arteries demonstrate normal caliber, and join to form a normal appearing basilar artery. There is a short segment occlusion of the right P2 s egment with reconstitution of normal caliber and opacification distally.. No aneurysms are seen. NECK CT ANGIOGRAPHY: Carotid system: The great vessels demonstrate a conventional anatomy as they arise from the aortic a rch. The origins of the common carotid arteries appear patent. The common carotid arteries demonstr ate normal caliber and courses. The bifurcation regions are both widely patent with mild calcified p laques. The internal carotid arteries demonstrate normal calibers with a tortuous course and retroph aryngeal course on the right. Posterior circulation: The origins of the vertebral arteries both appear widely patent. The more gaming perior extracranial portions of both vertebral arteries also demonstrate normal courses and calibers. They join to form a normal appearing basilar artery. Soft tissues: Visualized neck soft tissues demonstrate no suspicious abnormalities. Bones: No suspicious bony lesions. Visualized cervical spine appears normally aligned. Degenerativ e changes of the spine. 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 The other intracranial arteries are patent and normal in caliber. No significant abnormality is seen within the arteries of the neck. Findings have been added to a work list to be communicated to the ordering provider. The estimate of stenosis included in the report of the imaging study was calculated using the NASCET method Reviewed by: Diego Schultz MD on 10/09/2023 3:00 PM PST Approved by: Diego Schultz MD on 10/09/2023 3:00 PM PST Station ID: [id number]
[2023-10-09] MEDS: iohexoL-300 100 ML VIAL IVP ONE (15:22)
--- NOTE | 2023-10-09 15:51 | MRI Report ---
PROCEDURE: Brain WO INDICATIONS: headache and confusion 3 days TECHNIQUE: Noncontrast axial T1 spin echo, axial T2 fast spin echo, sagittal and axial FLAIR, coronal T2 fast sp in echo, axial gradient echo, axial diffusion and ADC through the brain. COMPARISON: Same day CT head. FINDINGS: Image quality: Excellent. CSF Spaces: Basal cisterns are patent. No extra-axial fluid collections. Ventricles are normal in size and shape. Brain: No intracranial masses or hemorrhage. Vergara/white matter interface is normal. Age-related meet bal volume loss and chronic microvascular ischemic changes. Brainstem appears normal. Diffusion-treva ghted images demonstrate no acute ischemic insult. No chronic ischemic insults. Normal intravascula r flow voids are present. Skull and face: Calvarium has normal marrow signal. Bilateral lens replacements. The orbits are oth erwise normal in appearance. Sinuses: Sinuses and mastoids are clear. IMPRESSION: 1.No acute intracranial abnormalities. No acute or subacute infarct. 2.Age-related global volume loss and chronic microvascular ischemic changes. Reviewed by: Diego Schultz MD on 10/09/2023 3:49 PM PST Approved by: Diego Schultz MD on 10/09/2023 3:49 PM PST Station ID: [id number]
--- NOTE | 2023-10-09 16:32 | ED Physician Documentation ---
ED Addendum - Addendum Addendum: 10/09/23 16:[address] Costello at 3 PM shift change. Briefly she had resolved confusion 2 days ago and was here waiting for MRI. The MRI was without pertinent positive findings. 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 She is feeling 100% fine right now. She was counseled to take a baby aspirin a day. Diagnosis: 1. Resolved confusion Disposition: Discharged home Condition: Stable
== END 2023-10-09 16:28 | disposition home or self-care (01) ==
LOC: ED 08:40
DX: R51.9 Headache, unspecified (principal); R41.0 Disorientation, unspecified
CPT/HCPCS: 36415; 70450; 70496; 70498; 70551; 80053; 82607; 83690; 83735; 85025; 85651; 93005; 96360; 99284; Q9967